=== PATIENT | female | born 1945 | race Caucasian/White ===

== ENCOUNTER 2017-01-07 08:13 | Emergency (ER) | payer OTHER ==
[~2017-01-07] VITALS: Ht 165.1 cm; Wt 106.6 kg
[~2017-01-07 08:13] MED LIST: ACET-1256; ASPEC81; CMD25; CMD5; CZR50; EZET10TA63; FRS/40; ISOS60TA25; METO1TAB69; NTRGSL/4; SIMV80TA2; SYN50; SYNTHROID
[2017-01-07 08:17] VITALS: TEMP 36.6; Ht 165.1 cm; Wt 106.6 kg
[2017-01-07 08:31] VITALS: O2SAT 96
[2017-01-07] MEDS ORDERED: OPTIRAY 320 IV PRN (08:45)
[2017-01-07 08:47] LABS: HEMATOCRIT 45.2 % (37-47); MEAN CELL VOLUME 91.1 fL (80-100); MEAN CORPUSCULAR HEMOGLOBIN 30.6 pg (25-34); MEAN CORPUSCULAR HGB CONC 33.6 g/dl (32-36); MEAN PLATELET VOLUME 9.2 fL (7.4-10.4); PLATELET COUNT 176 K/uL (130-400); RED BLOOD COUNT 4.96 M/uL (4.2-5.4); WHITE BLOOD COUNT 7.21 K/uL (4.8-10.8)
--- NOTE | 2017-01-07 08:58 | EMERGENCY ROOM VISIT NOTE ---
History Report prepared by Sharon: Tatyana Chandra Under the Supervision of: Dr. Sunil Hyde M.D. First contact with patient: 08:28 Chief Complaint: CARDIAC ASSESSMENT Stated Complaint: DEJA. ARM PAIN, PAIN GOING ACROSS BACK Nursing Triage Summary: pt report intermittent chest pain for 3 days. reports sob with exertion but is not new. has hx of clots in heart. denies any past stents or catheterization. pain radiates to bilat arms and across shoulders. spouse brought her here today d/t her c/o chest pain early this am History of Present Illness The patient is a 71 year old female who presents to the Emergency Room with complaints of constant bilateral arm pain beginning 3 days ago. The patient states that she has been having pain in both of her arms and across her back. She describes the pain as aching in her arms and the feeling of someone sitting on her shoulders. She reports that she has a cardiac history and a history of blood clots. The patient complains of back pain and intermittent shortness of breath that is not new. She denies any chest pain, abdominal pain, new leg swelling, and leg pain. She rates her pain as an 8/10 in severity. Source of History: patient Onset: 3 days go Position: arm (bilateral) Symptom Intensity: 8/10 Quality: ache Timing: constant Associated Symptoms: + SOB, + back pain, No chest pain, No abdominal pain Note: She denies any new leg swelling and leg pain. Review of Systems All systems have been listed, reviewed, and are negative other than those previously mentioned. Please see Additional Medical History Sheet. Past Medical & Surgical Medical Problems: (1) CAD (coronary artery disease) (2) Hx of blood clots (3) Hypertension Family History Heart disease Hypertension Social History Smoking Status: Never Smoker Smokeless Tobacco Use: No Alcohol Use: none Marital Status: Housing Status: lives with roommate Occupation Status: retired Current/Historical Medications Scheduled Furosemide (Lasix), 80 MG PO 3XWK Furosemide (Lasix), 40 MG PO 4XWK Isosorbide Mononitrate Ext Rel (Imdur Ext Rel), 60 MG PO QAM Levothyroxine Sodium (Synthroid), 75 MCG PO DAILY Losartan Potassium (Cozaar), 50 MG PO DAILY Metoprolol Tartrate (Lopressor) (Lopressor), 100 MG PO QAM Metoprolol Tartrate (Lopressor) (Lopressor), 150 MG PO QPM Ranitidine Hcl (Zantac), 150 MG PO BID Rosuvastatin Calcium (Crestor), 40 MG PO QPM Sulfa/Trimethoprim (Bactrim Ds 800MG/160MG), 1 TAB PO BID Warfarin Sod (Jantoven), 2.5 MG PO 3XWK Warfarin Sod (Coumadin), 5 MG PO 4XWK Scheduled PRN Nitroglycerin (Nitrostat), 0.4 MG UT PRN PRN for CHEST PAIN Allergies Coded Allergies: No Known Allergies (Verified Allergy, Unknown, 05/28/04) Physical Exam Vital Signs Date Time Temp Pulse Resp B/P (MAP) Pulse Ox O2 Delivery O2 Flow Rate FiO2 01/07/17 10:54 71 18 194/95 96 Room Air 01/07/17 09:05 68 18 161/84 95 Room Air 01/07/17 08:34 73 01/07/17 08:31 96 Room Air 01/07/17 08:28 98 Room Air 01/07/17 08:17 36.6 71 18 149/76 95 Room Air Physical Exam GENERAL: Patient awake, alert, oriented x 3. Patient follows commands. Patient does not appear toxic. Patient is adequately hydrated and well- nourished. SKIN: No erythema, pallor, cyanosis or rash HEENT: Normal head, hirsute, pupils equal, reactive to light and accommodation. Oral cavity and posterior pharynx appear normal. Neck: Without adenopathy, no neck vein distention. CARDIOVASCULAR: Pulses carotid radial and femoral are intact and equal bilaterally. LUNGS: Clear to auscultation. No wheezes, no rales, no rhonchi. HEART: No murmurs. No gallops. No rubs ABDOMEN: Obese, soft, nontender. EXTREMITIES: No signs of trauma. No calf or thigh tenderness. Patient has 2+ non pitting pretibial edema. NEUROLOGIC: Cranial nerves II-XII within normal limits. No gross motor sensory function deficits. Medical Decision & Procedures ER Provider Diagnostic Interpretation: Radiology results as stated below per my review and radiologist interpretation: TWO VIEW CHEST FINDINGS: PA and lateral chest radiographs are compared to study dated 01/20/2006. The heart is top normal in size. There is atherosclerotic calcification of the thoracic aorta. Chronic interstitial thickening is unchanged. The lungs and pleural spaces are clear. There is no pneumothorax. The skeletal structures are osteopenic. 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 IMPRESSION: No acute cardiopulmonary abnormality. Electronically signed by: Jay Armstrong M.D. 01/07/2017 9:05 AM Dictated Date/Time: 01/07/2017 9:[address] ANGIOGRAM OF THE CHEST COMBO FINDINGS: Thyroid: The thyroid gland is atrophic. Scattered subcentimeter low-attenuation nodules are identified. Thoracic aorta: No intramural hematoma is identified on the unenhanced series. There is mild atherosclerotic calcification of the thoracic aorta , which is normal in caliber and demonstrates bovine variant arch anatomy. No dissection is seen. The arch vessels are widely patent. Pulmonary vasculature: The pulmonary trunk is normal in caliber. There is no evidence of pulmonary embolus in the main, lobar, or segmental pulmonary arteries. Heart: The heart is normal in size and there is trace pericardial fluid. The coronary arteries are densely calcified. Lungs and pleural spaces: The lungs and pleural spaces are clear. The trachea and central airways are patent. Mediastinum: There is no mediastinal lymphadenopathy. Miracle: Clear. Axillae: There is no axillary lymphadenopathy. Upper abdomen: There is a small hiatal hernia. Circumferential wall thickening is suggested in the mid to distal esophagus. There is a punctate nonobstructing calculus in the upper pole of the left kidney. Skeletal structures: The skeletal structures are osteopenic. Degenerative change and DISH are noted in the thoracic spine. No lytic or blastic bony lesions are seen. Arthritic change is seen in the shoulders. IMPRESSION: 1. There is no aneurysm or dissection involving the thoracic aorta. 2. There is no evidence of pulmonary embolus in the main, lobar, or segmental pulmonary arteries. 3. There is a small hiatal hernia and significant circumferential wall thickening is suggested in the mid to distal esophagus. Correlate clinically for evidence of esophagitis. If further assessment is desired then endoscopy would be appropriate. 4. The lungs are clear. 5. Punctate nonobstructing left renal calculus. Electronically signed by: Jay Armstrong M.D. 01/07/2017 10:04 AM Dictated Date/Time: 01/07/2017 9:58 AM Laboratory Results 01/07/17 08:29 01/07/17 08:29 Test 6/24/17 08:29 01/07/17 09:30 01/07/17 10:48 Red Blood Count 4.96 M/uL (4.2-5.4) Mean Corpuscular Volume 91.1 fL (80-100) Mean Corpuscular Hemoglobin 30.6 pg (25-34) Mean Corpuscular Hemoglobin Concent 33.6 g/dl (32-36) RDW Standard Deviation 48.7 fL (36.4-46.3) RDW Coefficient of Variation 14.5 % (11.5-14.5) Mean Platelet Volume 9.2 fL (7.4-10.4) Anion Gap 9.0 mmol/L (3-11) Est Creatinine Clear Calc Drug Dose 40.5 ml/min Estimated GFR () 39.6 Estimated GFR (Non- 34.2 BUN/Creatinine Ratio 13.4 (10-20) Calcium Level 9.6 mg/dl (8.5-10.1) Troponin I < 0.015 ng/ml (0-0.045) Chemistry Specimen Hemolysis Urine Color YELLOW Urine Appearance CLOUDY (CLEAR) Urine pH 8.0 (4.5-7.5) Urine Specific Geary 1.026 (1.000-1.030) Urine Protein NEG (NEG) Urine Glucose (UA) NEG (NEG) Urine Ketones NEG (NEG) Urine Occult Blood TRACE (NEG) Urine Nitrite NEG (NEG) Urine Bilirubin NEG (NEG) Urine Urobilinogen NEG (NEG) Urine Leukocyte Esterase SMALL (NEG) Urine WBC (Auto) 10-30 /hpf (0-5) Urine RBC (Auto) 5-10 /hpf (0-4) Urine Hyaline Casts (Auto) 1-5 /lpf (0-5) Urine Epithelial Cells (Auto) >30 /lpf (0-5) Urine Bacteria (Auto) 2+ (NEG) Urine Renal Epithelial Cells /lpf (0-5) Prothrombin Time 16.9 SECONDS (9.0-12.0) Prothromb Time International Ratio 1.6 (0.9-1.1) Laboratory results as stated above per my review. ECG Indication: back/shoulder pain Rate (beats per minute): 74 Rhythm: sinus rhythm Findings: 1st degree AV block, LAFB, no acute ischemic change, other (left ventricular hypertrophy) Comparison ECG Date: 07-FEB-2006 Change: Minimal change from previous EKG from 11 years ago. ED Course 0828: Past medical records reviewed. The patient was evaluated in room B10. A complete history and physical examination was performed. 1029: I reevaluated and updated the patient. 1042: Upon reevaluation, the patient appeared to have improvement of her symptoms. I discussed today's findings with the patient. She verbalized agreement of the treatment plan. The patient was discharged home. Medical Decision I considered multiple diagnoses including myocardial infarction, chest wall pain , pericarditis, myocarditis, aortic emergencies, pulmonary embolism, congestive heart failure, GI causes, and other significant cardiopulmonary disorders. Multiple labs, urinalysis and imaging were obtained. Please see above. The patient has numerous white cells and bacteria in the urine consistent with a UTI despite the fact that she has no urinary symptoms. CT reveals no aortic pathology but does show what appears to be some esophagitis and small hiatal hernia. I believe that is the source of her pain. The patient has no evidence of an acute cardiopulmonary event. The patient will be started on ranitidine and Bactrim. She is to follow-up with her family physician within the next 7- 10 days. INR is slightly low but she has had high numbers in the recent past therefore I will keep her on the same dose at this time. Blood pressure is also elevated. She will need to follow-up with her family physician. Medication Reconciliation: I attest that I have personally reviewed the patient' s current medication list. Blood Pressure Screening: Patient was found to have an elevated blood pressure and was referred to their primary doctor for recheck and further treatment. Impression Primary Impression: Esophagitis Additional Impression: Urinary tract infection Scribe Attestation The scribe's documentation has been prepared under my direction and personally reviewed by me in its entirety. I confirm that the note above accurately reflects all work, treatment, procedures, and medical decision making performed by me. Departure Information Dispostion Home / Self-Care Prescriptions Sulfa/Trimethoprim (Bactrim Ds 800MG/160MG) Tab 1 TAB PO BID for 5 Days, #10 TAB Prov: Sunil Hyde M.D. 01/07/17 Ranitidine Hcl (ZANTAC) 150 Mg Tab 150 MG PO BID for 30 Days, #60 TAB Prov: Sunil Hyde M.D. 01/07/17 Referrals José Miguel Choudhary M.D. (MEDICAL) (PCP) Forms IMPORTANT VISIT INFORMATION Patient Instructions My [facility] Additional Instructions 1 ranitidine/Zantac twice a day for 30 days One Bactrim twice a day for 5 days. Follow-up with your family physician within the next 10 days. Return here sooner if pain is getting worse. Follow up with your family doctor within 10 days for back pain and blood pressure evaluation. Problem Qualifiers
--- NOTE | 2017-01-07 09:06 | DIAGNOSTIC IMAGING REPORT ---
TWO VIEW CHEST CLINICAL HISTORY: Atypical chest pain. FINDINGS: PA and lateral chest radiographs are compared to study dated 01/20/2006. The heart is top normal in size. There is atherosclerotic calcification of the thoracic aorta. Chronic interstitial thickening is unchanged. The lungs and pleural spaces are clear. There is no pneumothorax. The skeletal structures are osteopenic. 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 IMPRESSION: No acute cardiopulmonary abnormality. Electronically signed by: Jay Armstrong M.D. 01/07/2017 9:05 AM Dictated Date/Time: 01/07/2017 9:04 AM
[2017-01-07 09:17] LABS: BLOOD UREA NITROGEN 20 mg/dl (7-18); BUN/CREATININE RATIO 13.4 (10-20); CALCIUM 9.6 mg/dl (8.5-10.1); CARBON DIOXIDE 27 mmol/L (21-32); CHLORIDE 105 mmol/L (98-107); GLUCOSE 124 mg/dl (70-99); POTASSIUM 4.1 mmol/L (3.5-5.1); SODIUM 141 mmol/L (136-145)
[2017-01-07] MEDS ORDERED: NITR0.4S UT (09:39)
[2017-01-07] MEDS ORDERED: METO100T14 PO ×2 (09:39)
[2017-01-07] MEDS ORDERED: ROSU40TA PO (09:39)
[2017-01-07] MEDS ORDERED: LEVO75TA PO (09:39)
[2017-01-07] MEDS ORDERED: LOSA50TA6 PO (09:39)
[2017-01-07] MEDS ORDERED: ASPI81TA28 PO (09:39)
[2017-01-07 09:42] LABS: URINE APPEARANCE CLOUDY (CLEAR); URINE BILIRUBIN NEG (NEG); URINE COLOR YELLOW; URINE EPITHELIAL CELL AUTO >30 /lpf (0-5); URINE NITRITE NEG (NEG); URINE SPECIFIC GRAVITY 1.026 (1.000-1.030); UROBILINOGEN NEG (NEG)
[2017-01-07 09:47] LABS: MANUAL MICROSCOPIC REQUIRED? NO; REVIEW REQ? YES
[2017-01-07 09:59] LABS: SULFASALICYLIC ACID NEG (NEG)
--- NOTE | 2017-01-07 10:06 | DIAGNOSTIC IMAGING REPORT ---
CT ANGIOGRAM OF THE CHEST COMBO CLINICAL HISTORY: Atypical chest pain. Dyspnea. Shoulder and back pain. COMPARISON STUDY: Chest radiographs dated 01/07/2017. TECHNIQUE: Before and following the IV administration of 120 cc of Optiray 320, CT angiogram of the chest was performed from the thoracic inlet to the upper abdomen utilizing the dissection protocol. Images are reviewed in the axial, sagittal, and coronal planes. 3-D MIPS images are created and assessed. IV contrast was administered without complication. CT DOSE: 1167.72 mGy.cm FINDINGS: Thyroid: The thyroid gland is atrophic. Scattered subcentimeter low-attenuation nodules are identified. Thoracic aorta: No intramural hematoma is identified on the unenhanced series. There is mild atherosclerotic calcification of the thoracic aorta , which is normal in caliber and demonstrates bovine variant arch anatomy. No dissection is seen. The arch vessels are widely patent. Pulmonary vasculature: The pulmonary trunk is normal in caliber. There is no evidence of pulmonary embolus in the main, lobar, or segmental pulmonary arteries. Heart: The heart is normal in size and there is trace pericardial fluid. The coronary arteries are densely calcified. Lungs and pleural spaces: The lungs and pleural spaces are clear. The trachea and central airways are patent. Mediastinum: There is no mediastinal lymphadenopathy. Miracle: Clear. Axillae: There is no axillary lymphadenopathy. Upper abdomen: There is a small hiatal hernia. Circumferential wall thickening is suggested in the mid to distal esophagus. There is a punctate nonobstructing calculus in the upper pole of the left kidney. Skeletal structures: The skeletal structures are osteopenic. Degenerative change and DISH are noted in the thoracic spine. No lytic or blastic bony lesions are seen. Arthritic change is seen in the shoulders. IMPRESSION: 1. There is no aneurysm or dissection involving the thoracic aorta. 2. There is no evidence of pulmonary embolus in the main, lobar, or segmental pulmonary arteries. 3. There is a small hiatal hernia and significant circumferential wall thickening is suggested in the mid to distal esophagus. Correlate clinically for evidence of esophagitis. If further assessment is desired then endoscopy would be appropriate. 4. The lungs are clear. 5. Punctate nonobstructing left renal calculus. Electronically signed by: Jay Armstrong M.D. 01/07/2017 10:04 AM Dictated Date/Time: 01/07/2017 9:58 AM
[2017-01-07] MEDS ORDERED: CMD/25 PO (10:24)
[2017-01-07] MEDS ORDERED: WARF2.5T8 PO (10:24)
[2017-01-07] MEDS ORDERED: FRS/40 PO ×2 (10:30)
[2017-01-07] MEDS ORDERED: ISOS60TA25 PO (10:31)
[2017-01-07] MEDS ORDERED: SULF800T23 PO (10:35)
[2017-01-07] MEDS ORDERED: RANI150T3 PO (10:35)
[2017-01-07 10:54] VITALS: BP 194/95; PULSE 71; O2SAT 96
[2017-01-07 10:59] LABS: INR 1.6 (0.9-1.1); PROTHROMBIN TIME (PATIENT) 16.9 SECONDS (9.0-12.0)
== END 2017-01-07 11:23 | disposition home or self-care (01) ==
LOC: C.EDB 08:15
DX: K20.9 Esophagitis, unspecified (principal); N39.0 Urinary tract infection, site not specified; I25.10 Atherosclerotic heart disease of native coronary artery without angina pectoris; I10 Essential (primary) hypertension; Z86.718 Personal history of other venous thrombosis and embolism; Z79.01 Long term (current) use of anticoagulants; Z79.899 Other long term (current) drug therapy

== ENCOUNTER 2017-04-18 15:21 | Emergency (ER) | payer OTHER ==
[~2017-04-18] VITALS: Ht 162.6 cm; Wt 104.2 kg
[~2017-04-18 15:21] MED LIST changes: -ACET-1256; -ASPEC81; +CMD/25 PO; -CMD25; -CMD5; -CZR50; -EZET10TA63; -FRS/40; +FRS/40 PO; -ISOS60TA25; +ISOS60TA25 PO; +LEVO75TA PO; +LOSA50TA6 PO; +METO100T14 PO; -METO1TAB69; +NITR0.4S UT; -NTRGSL/4; +ROSU40TA PO; -SIMV80TA2; -SYN50; -SYNTHROID; +WARF2.5T8 PO
[2017-04-18 15:30] VITALS: TEMP 37; Ht 162.6 cm; Wt 104.2 kg
[2017-04-18] MEDS ORDERED: SODIUM CHLORIDE 0.9% 1000ML 1,000 ML IV STA (16:02)
--- NOTE | 2017-04-18 16:41 | DIAGNOSTIC IMAGING REPORT ---
CHEST ONE VIEW PORTABLE CLINICAL HISTORY: Altered mental status. Weakness. COMPARISON STUDY: Chest radiograph and chest CT January 07, 2017. FINDINGS: Lung volumes are normal. No pneumothorax or pleural effusion is present. There is no evidence of pulmonary edema. No consolidation is identified. There is mild to moderate enlargement of the cardiac silhouette. IMPRESSION: 1. No acute cardiopulmonary findings. 2. Mild to moderate enlargement of the cardiac silhouette. Electronically signed by: Yaakov Levi M.D. 04/18/2017 4:40 PM Dictated Date/Time: 04/18/2017 4:38 PM
[2017-04-18 17:12] LABS: URINE APPEARANCE CLOUDY (CLEAR); URINE BILIRUBIN NEG (NEG); URINE COLOR DK YELLOW; URINE EPITHELIAL CELL AUTO >30 /lpf (0-5); URINE NITRITE NEG (NEG); URINE SPECIFIC GRAVITY 1.021 (1.000-1.030); UROBILINOGEN NEG (NEG); ZZUR CULT IF INDIC CLEAN CATCH YES
[2017-04-18 17:15] LABS: MANUAL MICROSCOPIC REQUIRED? NO; REVIEW REQ? NO
[2017-04-18 17:15] LABS: BASO % 0.4 %; BASO ABS # 0.02 K/uL (0-0.2); COMPLETE YES; EOS % 1.1 %; HEMATOCRIT 36.3 % (37-47); IG% 0.2 %; LYMPH % 19.9 %; LYMPH ABS # 1.13 K/uL (1.2-3.4); MEAN CELL VOLUME 91.9 fL (80-100); MEAN CORPUSCULAR HEMOGLOBIN 29.1 pg (25-34); MEAN CORPUSCULAR HGB CONC 31.7 g/dl (32-36); MEAN PLATELET VOLUME 9.2 fL (7.4-10.4); MONO % 8.3 %; NEUT % 70.1 %; PLATELET COUNT 185 K/uL (130-400); RED BLOOD COUNT 3.95 M/uL (4.2-5.4); WHITE BLOOD COUNT 5.68 K/uL (4.8-10.8)
[2017-04-18 17:22] LABS: ALT/SGPT 9 U/L (12-78); AST/SGOT 10 U/L (15-37); BLOOD UREA NITROGEN 19 mg/dl (7-18); BUN/CREATININE RATIO 13.8 (10-20); CALCIUM 8.9 mg/dl (8.5-10.1); CARBON DIOXIDE 29 mmol/L (21-32); CHLORIDE 111 mmol/L (98-107); GLUCOSE 97 mg/dl (70-99); MAGNESIUM 2.5 mg/dl (1.8-2.4); POTASSIUM 3.9 mmol/L (3.5-5.1); SODIUM 146 mmol/L (136-145)
[2017-04-18 17:23] LABS: INR 3.9 (0.9-1.1); PARTIAL THROMBOPLASTIN RATIO 1.6; PROTHROMBIN TIME (PATIENT) 43.7 SECONDS (9.0-12.0)
[2017-04-18 17:25] LABS: ALKALINE PHOSPHATASE 90 U/L (45-117)
--- NOTE | 2017-04-18 18:34 | EMERGENCY ROOM VISIT NOTE ---
History Report prepared by Mukundibjj: Nael Cifuentes Under the Supervision of: Dr. Irwin Bajwa D.O. First contact with patient: 15:36 Chief Complaint: BILATERAL LEG WEAKNESS Stated Complaint: LEG WEAKNESS & SWELLING History of Present Illness The patient is a 72 year old female who presents to the Emergency Room with complaints of constant bilateral leg weakness beginning shortly prior to arrival. The patient states that she was walking up a flight of stairs when her legs suddenly became weak and gave out. She states that she collapsed on the stairs, but did not hit her head or lose consciousness. She does not believe she injured herself during the fall. The patient notes that she had a similar event occur about a month ago, and believes they may be related to a new medication she was started on. She also complains of bilateral leg swelling recently. She denies any nausea, vomiting, chest pain, SOB, or dizziness. The patient is on Warfarin. She uses a cane to ambulate at home. Onset: shortly prior to arrival Position: leg (bilateral) Quality: other (weakness) Timing: constant Associated Symptoms: No LOC, No chest pain, No SOB, No nausea, No vomiting Note: Additional symptoms: bilateral leg swelling. She denies any dizziness. Review of Systems See HPI for pertinent positives & negatives. A total of 10 systems reviewed and were otherwise negative. Past Medical & Surgical Medical Problems: (1) CAD (coronary artery disease) (2) Hx of blood clots (3) Hypertension Family History Heart disease Hypertension Social History Smoking Status: Never Smoker Alcohol Use: none Marital Status: Housing Status: lives with roommate Occupation Status: retired Current/Historical Medications Scheduled Furosemide (Lasix), 80 MG PO 3XWK Furosemide (Lasix), 40 MG PO 4XWK Isosorbide Mononitrate Ext Rel (Imdur Ext Rel), 60 MG PO QAM Levothyroxine Sodium (Synthroid), 75 MCG PO DAILY Losartan Potassium (Cozaar), 50 MG PO DAILY Metoprolol Tartrate (Lopressor) (Lopressor), 100 MG PO QAM Metoprolol Tartrate (Lopressor) (Lopressor), 150 MG PO QPM Rosuvastatin Calcium (Crestor), 40 MG PO QPM Warfarin Sod (Jantoven), 2.5 MG PO 5XWK Warfarin Sod (Coumadin), 5 MG PO 2XWK Scheduled PRN Nitroglycerin (Nitrostat), 0.4 MG UT PRN PRN for CHEST PAIN Allergies Coded Allergies: No Known Allergies (Verified , 04/18/17) Physical Exam Vital Signs Date Time Temp Pulse Resp B/P (MAP) Pulse Ox O2 Delivery O2 Flow Rate FiO2 04/18/17 17:01 65 16 101/57 98 Room Air 04/18/17 16:07 66 04/18/17 15:30 37.0 67 18 146/73 100 Room Air Physical Exam CONSTITUTIONAL/VITAL SIGNS: Reviewed / noted above. GENERAL: Non-toxic in appearance. INTEGUMENTARY: Warm, dry, and [place]. HEAD: Normocephalic. EYES: without scleral icterus or trauma. ENT/OROPHARYNX: clear and moist. LYMPHADENOPATHY/NECK: Is supple without lymphadenopathy or meningismus. RESPIRATORY: Lungs clear and equal. CARDIOVASCULAR: Regular rate and rhythm. GI/ABDOMEN: Soft and nontender. No organomegaly or pulsatile mass. No rebound or guarding. Normal bowel sounds. EXTREMITIES: Warm and well perfused. Chronic lower extremity edema. BACK: No CVA tenderness. NEUROLOGICAL: Intact without focal deficits. PSYCHIATRIC: normal affect. MUSCULOSKELETAL: Normally developed with good muscle tone. Medical Decision & Procedures ER Provider Diagnostic Interpretation: X ray results and stated below per my interpretation and radiology interpretation. CHEST ONE VIEW PORTABLE FINDINGS: Lung volumes are normal. No pneumothorax or pleural effusion is present. There is no evidence of pulmonary edema. No consolidation is identified. There is mild to moderate enlargement of the cardiac silhouette. IMPRESSION: 1. No acute cardiopulmonary findings. 2. Mild to moderate enlargement of the cardiac silhouette. Electronically signed by: Yakaov Levi M.D. 04/18/2017 4:40 PM Laboratory Results 04/18/17 15:45 Red Blood Count 3.95, Mean Corpuscular Volume 91.9, Mean Corpuscular Hemoglobin 29.1, Mean Corpuscular Hemoglobin Concent 31.7, Mean Platelet Volume 9.2, Neutrophils (%) (Auto) 70.1, Lymphocytes (%) (Auto) 19.9, Monocytes (%) (Auto) 8.3, Eosinophils (%) (Auto) 1.1, Basophils (%) (Auto) 0.4, Neutrophils # (Auto) 3.99, Lymphocytes # (Auto) 1.13, Monocytes # (Auto) 0.47, Eosinophils # (Auto) 0.06, Basophils # (Auto) 0.02 04/18/17 15:45 Test 04/18/17 00:00 04/18/17 15:45 Urine Color DK YELLOW Urine Appearance CLOUDY (CLEAR) Urine pH 5.0 (4.5-7.5) Urine Specific [place] 1.021 (1.000-1.030) Urine Protein 1+ (NEG) Urine Glucose (UA) NEG (NEG) Urine Ketones TRACE (NEG) Urine Occult Blood NEG (NEG) Urine Nitrite NEG (NEG) Urine Bilirubin NEG (NEG) Urine Urobilinogen NEG (NEG) Urine Leukocyte Esterase NEG (NEG) Urine WBC (Auto) 1-5 /hpf (0-5) Urine RBC (Auto) 0-4 /hpf (0-4) Urine Hyaline Casts (Auto) 5-10 /lpf (0-5) Urine Epithelial Cells (Auto) >30 /lpf (0-5) Urine Bacteria (Auto) 1+ (NEG) White Blood Count 5.68 K/uL (4.8-10.8) Red Blood Count 3.95 M/uL (4.2-5.4) Hemoglobin 11.5 g/dL (12.0-16.0) Hematocrit 36.3 % (37-47) Mean Corpuscular Volume 91.9 fL (80-100) Mean Corpuscular Hemoglobin 29.1 pg (25-34) Mean Corpuscular Hemoglobin Concent 31.7 g/dl (32-36) Platelet Count 185 K/uL (130-400) Mean Platelet Volume 9.2 fL (7.4-10.4) Neutrophils (%) (Auto) 70.1 % Lymphocytes (%) (Auto) 19.9 % Monocytes (%) (Auto) 8.3 % Eosinophils (%) (Auto) 1.1 % Basophils (%) (Auto) 0.4 % Neutrophils # (Auto) 3.99 K/uL (1.4-6.5) Lymphocytes # (Auto) 1.13 K/uL (1.2-3.4) Monocytes # (Auto) 0.47 K/uL (0.11-0.59) Eosinophils # (Auto) 0.06 K/uL (0-0.5) Basophils # (Auto) 0.02 K/uL (0-0.2) RDW Standard Deviation 50.8 fL (36.4-46.3) RDW Coefficient of Variation 14.9 % (11.5-14.5) Immature Granulocyte % (Auto) 0.2 % Immature Granulocyte # (Auto) 0.01 K/uL (0.00-0.02) Prothrombin Time 43.7 SECONDS (9.0-12.0) Prothromb Time International Ratio 3.9 (0.9-1.1) Activated Partial Thromboplast Time 41.0 SECONDS (21.0-31.0) Partial Thromboplastin Ratio 1.6 Anion Gap 6.0 mmol/L (3-11) Est Creatinine Clear Calc Drug Dose 41.5 ml/min Estimated GFR () 42.8 Estimated GFR (Non- 36.9 BUN/Creatinine Ratio 13.8 (10-20) Calcium Level 8.9 mg/dl (8.5-10.1) Magnesium Level 2.5 mg/dl (1.8-2.4) Total Bilirubin 1.4 mg/dl (0.2-1) Direct Bilirubin 0.2 mg/dl (0-0.2) Aspartate Amino Transf (AST/SGOT) 10 U/L (15-37) Alanine Aminotransferase (ALT/SGPT) 9 U/L (12-78) Alkaline Phosphatase 90 U/L (45-117) Total Creatine Kinase 31 U/L (26-192) Creatine Kinase MB < 0.5 ng/ml (0.5-3.6) Creatine Kinase MB Ratio (0-3.0) Troponin I < 0.015 ng/ml (0-0.045) Total Protein 6.5 gm/dl (6.4-8.2) Albumin 2.9 gm/dl (3.4-5.0) Lipase 180 U/L (73-393) Laboratory results as stated above per my review. Medications Administered Medications (Trade) Dose Ordered Sig/David Route Start Time Stop Time Status Last Admin Dose Admin Sodium Chloride 1,000 ml @ 200 mls/hr Q5H STAT IV 04/18/17 16:02 04/18/17 21:01 04/18/17 16:02 200 MLS/HR ECG Indication: weakness Rate (beats per minute): 65 Rhythm: sinus rhythm Findings: 1st degree AV block, no acute ischemic change, no ectopy ED Course 1555: Previous medical records were reviewed. The patient was evaluated in room B4A. A complete history and physical examination was performed. 1602: Ordered Sodium Chloride 1000 ml @ 2000 mls/hr IV. 1840: On reevaluation, the patient is resting comfortably. I discussed the results and findings with the patient. She verbalized agreement of the treatment plan. She was discharged home. Medical Decision Differential includes acute coronary syndrome, myocardial infarction, CVA, TIA, anemia, infection, pneumonia, UTI, pyelonephritis, poor nutrition, dehydration, electrolyte disturbance, hypoglycemia. This is a 72-year-old female who presents to the ED with a chief complaint of her legs giving out when going up the steps today. She states that she normally walks with a cane. Today as she was going up the steps, she just reports that her legs folded under her. She denies any specific injury. She denies falling down the steps or striking her head. She came in here for evaluation. She was transported by EMS. The patient is on warfarin chronically and she is also on chronic Lasix for lower extremity edema. Her exam was relatively unremarkable. There is no focal weakness. She is able to lift both of her legs off the bed. She does have bilateral lower extremity edema. Exam is otherwise unremarkable. She is in no distress. Vital signs are stable. Patient's twelve-lead EKG reveals sinus rhythm with first-degree AV block. CBC is unremarkable. INR is 3.9. She is on Coumadin. Troponin is negative. Urine does not show infection. Chest x-ray was negative for acute disease. The patient was told results the test. She was felt to be stable for discharge and outpatient follow-up. Medication Reconcilliation Current Medication List: was personally reviewed by me Blood Pressure Screening Patient's blood pressure: Elevated blood pressure Blood pressure disposition: Elevated BP felt to be situational Impression Primary Impression: Fall Scribe Attestation The scribe's documentation has been prepared under my direction and personally reviewed by me in its entirety. I confirm that the note above accurately reflects all work, treatment, procedures, and medical decision making performed by me. Departure Information Dispostion Home / Self-Care Referrals José Miguel Choudhary M.D. (MEDICAL) (PCP) Patient Instructions My [facility] Additional Instructions Follow-up with your doctor for further care and evaluation in 1-2 days. Return to the emergency department for worsening or new symptoms or any concerns. You have been examined and treated today on an emergency basis only. This is not a substitute for, or an effort to provide, complete comprehensive medical care. It is impossible to recognize and treat all injuries or illnesses in a single emergency department visit. It is therefore important that you follow up closely with your doctor. Call as soon as possible for an appointment.
[2017-04-18 18:43] VITALS: BP 149/73; PULSE 65; O2SAT 98
== END 2017-04-18 19:10 | disposition home or self-care (01) ==
LOC: EDBD 15:21 → C.EDB 15:24
DX: R60.0 Localized edema (principal); W19.XXXA Unspecified fall, initial encounter; I44.0 Atrioventricular block, first degree; I10 Essential (primary) hypertension; I25.10 Atherosclerotic heart disease of native coronary artery without angina pectoris; Z86.2 Personal history of diseases of the blood and blood-forming organs and certain disorders involving the immune mechanism; Z79.01 Long term (current) use of anticoagulants; Z79.899 Other long term (current) drug therapy; Z82.49 Family history of ischemic heart disease and other diseases of the circulatory system

== ENCOUNTER 2025-03-27 23:19 | Inpatient (IN) ==
--- NOTE | 2025-03-28 00:21 | Emergency Department Note ---
Impression & Plan Bilateral cellulitis of lower leg, Elevated troponin, Weakness Admit to the [facility] ED Provider Note NAME: SUN SELLERS AGE: 80 SEX: Female INFORMANT: Patient ED PROVIDER(S): Daysi Roman DO CHIEF COMPLAINT: weakness; lower extremity swelling and drainage PLAN: Disposition: admit to the [facility] MEDICAL DECISION MAKING: This is an 80-year-old female patient who presents to the emergency department by EMS for increasing weakness over the past couple of days and redness, swelling and drainage from both lower extremities. Patient was unable to get out of recliner and called EMS. Vital signs were stable on presentation but on physical exam she has obvious significant bilateral lower extremity edema with cellulitis and drainage from both legs. EMS providers explained that the patient's home is in deplorable condition with insects and snakes noted about the house. Chest x-ray showed evidence of cardiomegaly but no other evidence of CHF. Urinalysis was unremarkable. A septic protocol was performed and revealed a normal white blood cell count, negative lactate and negative procalcitonin. H&H were stable for the patient. Creatinine was at baseline at 1.95. Troponin was elevated at 27.6. The case was discussed with the [facility] and they will evaluate for further inpatient care and Antibiotic choice. Care/management discussed with: consulting technical manager and [facility] Triage Nursing notes: reviewed and agree with them. Vital Signs: reviewed and remarkable for hypertension Additional History obtained from: EMS Chronic Medical/Social Conditions affecting care: According to EMS, the patient is currently living by herself in a home that appears to be deplorable. There are snakes and bugs all throughout the home. Differential Diagnosis: CHF, lower extremity cellulitis, sepsis, hypoglycemia, hyperglycemia, cardiac dysrhythmia Diagnostics, independently interpreted by me: ECG: accelerated junctional rhythm at a rate of 71. There is no ST segment elevation but there is some ST segment depression in leads I and aVL. Cardiac Monitoring: Accelerated junctional at 72 Imaging studies: Portable chest x-ray: Cardiomegaly but no significant signs of CHF or pulmonary vascular congestion as per my independent interpretation. HPI: 80 year old Female arrives for evaluation of Weakness. patient called EMS today because she was unable to get up from her recliner. She has had increasing weakness over the past couple of days and redness, swelling and drainage from both lower extremities. PAST MEDICAL HISTORY: see below, PAST SURGICAL HISTORY: See Below, SOCIAL HISTORY: Patient lives by herself, home is thought to be deplorable HOME MEDICATIONS: See list ALLERGIES: None VITALS: See Below PHYSICAL EXAMINATION: HEENT: Head - normocephalic and atraumatic. Pupils are equal, round, and reactive to light. Extraocular eye muscles are intact, and sclera are anicteric. Nose - moist nasal mucosa without discharge. Mouth - moist buccal mucosa. Poor dentition. Oropharynx is nonerythematous and there is no tonsillar exudate or edema noted. Neck: Supple; no JVD, nuchal rigidity, cervical lymphadenopathy. Heart: Regular rate and rhythm. There is a normal S1 and S2 with no murmurs, clicks, or gallops appreciated. Lungs: Clear to auscultation bilaterally with no wheezes, rales, or rhonchi. Abdomen: Soft, completely nontender, nondistended, with good bowel sounds. There are no palpable pulsatile masses or hepatosplenomegaly. There is no guarding, rigidity, or rebound noted. Extremities: Patient has significant erythema and edema to both lower extremities below the knees. There are open/seeping wounds on the calves. Patient has ulceration forming on the left heel. Skin: warm and dry with good turgor and no rashes. Emergency Department course: The patient was evaluated in room C-4. A complete history and physical was performed. A septic protocol was obtained. Portable chest x-ray was performed. I reviewed findings with the patient. I discussed the case with the [facility] Hospitalist and they will evaluate for further inpatient care and antibiotic therapy. Past Med/Surg History Problem List (Updated 03/28/25 @ 18:58 by Daysi Roman DO) Weakness (Acute) Elevated troponin (Acute) Bilateral cellulitis of lower leg (Acute) Chronic stable angina Demand ischemia of myocardium Morbid obesity Prediabetes Chronic renal failure (CRF), stage 3b Lymphedema associated with obesity Acute on chronic heart failure with mildly reduced ejection fraction (HFmrEF) CHF (congestive heart failure) Nephrolithiasis Gross hematuria Hypertension (Chronic) CAD (coronary artery disease) (Chronic) Social History Smoking Status: Never smoker Hx Alcohol Use: No Hx Substance Use: No Preferred Language: Monegasque Communication Ability: Effective Ict Support Technicians Required: No Beliefs That Will Affect Care: None Current Living Situation: Alone Feels Safe at Home: Yes Safety Concerns: Feels Safe At This Time Assistive Devices: Cane and Walker Allergies Allergies Allergy/AdvReac Type Severity Reaction Status Date / Time No Known Allergies Allergy Unknown Verified 03/28/25 00:32 Home Meds Home Medications Medication Instructions Recorded Confirmed diclofenac sodium 1 % topical gel 2 g topical BID PRN JOINT PAIN 03/28/25 03/28/25 ergocalciferol (vitamin D2) 1,250 1,250 mcg PO WK 03/28/25 03/28/25 mcg (50,000 unit) capsule (Vitamin D2) ferrous sulfate 325 mg (65 mg 325 mg PO BID 03/28/25 03/28/25 iron) tablet (FeroSul) gabapentin 100 mg capsule 100 mg PO TID 03/28/25 03/28/25 isosorbide mononitrate 60 mg 60 mg PO QAM 03/28/25 03/28/25 tablet,extended release 24 hr levothyroxine 75 mcg tablet 75 mcg PO DAILYBB 03/28/25 03/28/25 losartan 50 mg tablet 50 mg PO DAILY 03/28/25 03/28/25 metoprolol tartrate 100 mg tablet 100 mg PO DAILY 03/28/25 03/28/25 nitroglycerin 0.4 mg sublingual 0.4 mg sublingual DIRECTED PRN 03/28/25 03/28/25 tablet (Nitrostat) Chest Pain pantoprazole 20 mg tablet,delayed 20 mg PO DAILY 03/28/25 03/28/25 release rosuvastatin 10 mg tablet 10 mg PO HS 03/28/25 03/28/25 tramadol 50 mg tablet 50 mg PO Q6H PRN Pain, Moderate 03/28/25 03/28/25 Results & Data (ED) Vital Signs Vital Signs - 24 hr 03/27/25 23:20 03/27/25 23:36 03/27/25 23:48 Temperature 36.5 C Temperature Source Oral Pulse Rate 71 71 Pulse Rate [Apical] 71 Pulse Rate from SpO2 Sensor Pulse Rhythm Pulse Rhythm [Apical] Regular Respiratory Rate 16 16 21 Respiratory Effort / Characteristics Non-Labored Spontaneous Non-Labored Spontaneous Respiratory Depth Normal Normal Respiratory Pattern Regular Regular Blood Pressure 145/81 H Blood Pressure [Right Arm] 145/81 H Blood Pressure Mean 102 Blood Pressure Mean [Right Arm] 102 Pulse Oximetry 100 100 100 Oxygen Delivery Method Room Air Room Air Room Air Sepsis Recent Fever Within 48 Hours No Sepsis New/Unexplained Change in Mental Status No Sepsis Action Taken by Nursing No Action Required 03/28/25 00:00 03/28/25 00:09 03/28/25 00:15 Temperature Temperature Source Pulse Rate 69 71 72 Pulse Rate [Apical] Pulse Rate from SpO2 Sensor Pulse Rhythm Regular Pulse Rhythm [Apical] Respiratory Rate 15 17 Respiratory Effort / Characteristics Respiratory Depth Respiratory Pattern Blood Pressure 135/60 Blood Pressure [Right Arm] Blood Pressure Mean 85 Blood Pressure Mean [Right Arm] Pulse Oximetry 98 98 Oxygen Delivery Method Room Air Room Air Sepsis Recent Fever Within 48 Hours Sepsis New/Unexplained Change in Mental Status Sepsis Action Taken by Nursing 03/28/25 00:15 03/28/25 00:15 03/28/25 00:30 Temperature Temperature Source Pulse Rate 71 75 Pulse Rate [Apical] 72 Pulse Rate from SpO2 Sensor 71 Pulse Rhythm Pulse Rhythm [Apical] Regular Respiratory Rate 17 19 15 Respiratory Effort / Characteristics Non-Labored Spontaneous Respiratory Depth Normal Respiratory Pattern Regular Blood Pressure 154/71 H Blood Pressure [Right Arm] 135/60 Blood Pressure Mean 103 Blood Pressure Mean [Right Arm] 85 Pulse Oximetry 98 97 96 Oxygen Delivery Method Room Air Room Air Room Air Sepsis Recent Fever Within 48 Hours Sepsis New/Unexplained Change in Mental Status Sepsis Action Taken by Nursing 03/28/25 01:00 03/28/25 01:31 03/28/25 02:01 Temperature Temperature Source Pulse Rate 71 72 Pulse Rate [Apical] 73 Pulse Rate from SpO2 Sensor 71 71 Pulse Rhythm Pulse Rhythm [Apical] Regular Respiratory Rate 17 14 18 Respiratory Effort / Characteristics Non-Labored Spontaneous Respiratory Depth Normal Respiratory Pattern Regular Blood Pressure 136/61 140/75 Blood Pressure [Right Arm] Blood Pressure Mean 84 106 Blood Pressure Mean [Right Arm] Pulse Oximetry 99 99 96 Oxygen Delivery Method Room Air Room Air Room Air Sepsis Recent Fever Within 48 Hours Sepsis New/Unexplained Change in Mental Status Sepsis Action Taken by Nursing 03/28/25 02:30 Temperature Temperature Source Pulse Rate 79 Pulse Rate [Apical] Pulse Rate from SpO2 Sensor 79 Pulse Rhythm Pulse Rhythm [Apical] Respiratory Rate 20 Respiratory Effort / Characteristics Respiratory Depth Respiratory Pattern Blood Pressure 156/79 H Blood Pressure [Right Arm] Blood Pressure Mean 119 Blood Pressure Mean [Right Arm] Pulse Oximetry 97 Oxygen Delivery Method Room Air Sepsis Recent Fever Within 48 Hours Sepsis New/Unexplained Change in Mental Status Sepsis Action Taken by Nursing Laboratory Data 03/28/25 07:00 03/28/25 07:00 Lab Results 03/27/25 03/28/25 03/28/25 Range/Units 23:40 00:59 01:05 WBC 6.05 (4.8-10.8) K/ul RBC 3.68 L (4.20-5.40) M/uL Hgb 11.4 L (12.0-16.0) g/dl Hct 34.6 L (37.0-47.0) % MCV 94.0 (80.0-100.0) fL MCH 31.0 (25.0-34.0) pg MCHC 32.9 (32.0-36.0) g/dL RDW Std Deviation 49.5 H (36.4-46.3) fL RDW Coeff of Hailey 14.4 (11.5-14.5) % Plt Count 175 (130-400) K/uL MPV 9.6 (9.4-12.4) fL Immature Gran % (Auto) 0.3 % Neut % (Auto) 74.0 % Lymph % (Auto) 14.5 % [facility] % (Auto) 8.9 % Eos % (Auto) 2.0 % Baso % (Auto) 0.3 % Neut # (Auto) 4.47 (1.40-6.50) K/uL Lymph # (Auto) 0.88 L (1.20-3.40) K/uL [facility] # (Auto) 0.54 (0.11-0.59) K/uL Eos # (Auto) 0.12 (0.00-0.50) K/uL Baso # (Auto) 0.02 (0.00-0.20) K/uL Immature Gran # (Auto) 0.02 (0.01-0.20) K/uL Sodium 143 (136-145) mmol/L Potassium 4.0 (3.5-5.1) mmol/L Chloride 110 H (98-107) mmol/L Carbon Dioxide 24 (21-32) mmol/L Anion Gap 9 (3-11) BUN 20 (6-23) mg/dl Creatinine 1.95 H (0.6-1.2) mg/dl Est Cr Clr Drug Dosing 28.2 ml/min eGFR 25.24 BUN/Creatinine Ratio 10.3 (10-20) Glucose 115 H (70-99(Fasting)) mg/dl Lactate 0.8 (0.4-2.0) mmol/L Calcium 8.9 (8.6-10.3) mg/dl Magnesium 2.4 (1.7-2.4) mg/dl Total Bilirubin 1.8 H (0.2-1.0) mg/dl Direct Bilirubin 0.4 H (0-0.2) mg/dl AST 22 (13-39) U/L ALT 7 (7-52) U/L Alkaline Phosphatase 79 (34-104) U/L Troponin I High Sens 27.6 H 23.2 H (0-14) pg/ml Total Protein 6.3 (6.0-8.3) gm/dl Albumin 3.2 L (3.4-5.0) gm/dl Procalcitonin 0.09 (0-0.5) ng/ml Urine Color Yellow Urine Appearance Clear (Clear) Urine pH 5.0 (4.5-7.5) Ur Specific [place] 1.024 (1.000-1.030) Urine Protein 1+ H (Negative) Urine Glucose (UA) Negative (Negative) Urine Ketones Negative (Negative) Urine Blood Negative (Negative) Urine Nitrite Negative (Negative) Urine Bilirubin Negative (Negative) Urine Urobilinogen Negative (Negative) Ur Leukocyte Esterase Negative (Negative) Urine WBC (Auto) 0-5 (0-5) /hpf Urine RBC (Auto) 0-2 (0-2) /hpf U Hyaline Cast (Auto) 0-2 (0-2) /lpf U Epithel Cells (Auto) 0-2 (0-2) /hpf Urine Bacteria (Auto) None Seen (None Seen) Urine Comment Administered Medications Aspirin (Aspirin 81 Mg Ectab) 81 mg PO DAILY [facility] Stop: 04/27/25 15:14 Last Admin: 03/28/25 15:56 Dose: 81 mg Documented By: GPF Ferrous Sulfate (Ferrous Sulfate 325 Mg Tab) 325 mg PO BID [facility] Stop: 04/27/25 08:59 Last Admin: 03/28/25 08:23 Dose: 325 mg Documented By: GPF Furosemide (Furosemide 40 Mg/4 Ml Vial) 60 mg IV [id number] [facility] Stop: 04/27/25 07:09 Last Admin: 03/28/25 13:45 Dose: 60 mg Documented By: Admin: 03/28/25 08:22 Dose: 60 mg Documented By: GPF Gabapentin (Gabapentin 100 Mg Cap) 100 mg PO TID [facility] Stop: 04/27/25 08:59 Last Admin: 03/28/25 13:45 Dose: 100 mg Documented By: Admin: 03/28/25 08:23 Dose: 100 mg Documented By: GPF Heparin Sodium (Porcine) (Heparin Sod 5,000 Unit/0.5 Ml Vial) 7,500 units SQ Q12 [facility] Stop: 04/27/25 08:59 Last Admin: 03/28/25 08:28 Dose: 7,500 units Documented By: GPF Isosorbide Mononitrate (Isosorbide [facility] Extended Rel 60 Mg Tabcr) 60 mg PO QAM [facility]DIS[facility] Stop: 04/27/25 08:59 Last Admin: 03/28/25 08:23 Dose: 60 mg Documented By: GPF Levothyroxine Sodium (Levothyroxine Sodium 75 Mcg Tablet) 75 mcg PO DAILYBB [facility] Stop: 04/27/25 06:29 Last Admin: 03/28/25 06:27 Dose: 75 mcg Documented By: KES Metoprolol Succinate (Metoprolol Succ 50mg Ext Rel Tab) 100 mg PO QAM ADDIS[facility] Stop: 04/27/25 08:59 Last Admin: 03/28/25 08:23 Dose: 100 mg Documented By: GPF Pantoprazole Sodium (Pantoprazole 40 Mg Tab) 40 mg PO DAILY [facility] Stop: 04/27/25 08:59 Last Admin: 03/28/25 08:23 Dose: 40 mg Documented By: GPF Discontinued Medications Daptomycin 700 mg/ Syringe 14 mls @ 7 mls/min IV NOW ONE; Protocol Stop: 03/28/25 02:18 Last Admin: 03/28/25 03:05 Dose: 7 mls/min Documented By: KLS Ceftriaxone Sodium (Rocephin) 2,000 mg in 50 mls @ 100 mls/hr IV Q24H [facility] Stop: 04/04/25 09:59 Last Infusion: 03/28/25 10:22 Dose: Infused Documented By: Admin: 03/28/25 09:55 Dose: 100 mls/hr Documented By: GPF Doxycycline Hyclate 100 mg/ (Dextrose) 100 mls @ 50 mls/hr IV Q12H [facility]DISON Stop: 04/04/25 08:59 Last Infusion: 03/28/25 10:22 Dose: Infused Documented By: Admin: 03/28/25 08:28 Dose: 50 mls/hr Documented By: GPF Potassium Chloride (Potassium Chloride Crtab 20 Meq Tabcr) 40 meq PO NOW STA Stop: 03/28/25 15:03 Last Admin: 03/28/25 15:56 Dose: 40 meq Documented By: GPF Discharge Plan Visit Data Chief Complaint: Leg Weakness, Bilateral Stated Complaint: WEAKNESS, LEG EDEMA ED Provider: Daysi Roman Discharge Problem: Bilateral cellulitis of lower leg, Elevated troponin, Weakness Patient Disposition: Admitted As Inpatient Condition: Serious Discharge Instructions Interventions: ED Discharge Assessment Last Done: 03/28/25 05:03
[2025-03-28 00:44] LABS: Hematocrit (blood only) 34.6 % (37.0-47.0); Hemoglobin 11.4 g/dl (12.0-16.0); Immature Granulocytes # (auto) 0.02 K/uL (0.01-0.20); Immature Granulocytes % (auto) 0.3 %; Mean Corpuscular Hemoglobin 31.0 pg (25.0-34.0); Mean Corpuscular Volume 94.0 fL (80.0-100.0); Platelet Count 175 K/uL (130-400); RDW Standard Deviation 49.5 fL (36.4-46.3); Red Blood Count 3.68 M/uL (4.20-5.40); White Blood Count 6.05 K/ul (4.8-10.8)
[2025-03-28 01:10] LABS: Alanine Aminotransferase 7.0 U/L (7-52); Alkaline Phosphatase 79.0 U/L (34-104); Anion Gap 9.0 (3-11); Bilirubin,Total 1.8 mg/dl (0.2-1.0); Blood Urea Nitrogen 20.0 mg/dl (6-23); Calcium 8.9 mg/dl (8.6-10.3); Carbon Dioxide 24.0 mmol/L (21-32); Chloride 110.0 mmol/L (98-107); Creatinine Clr Calc Pharmacy 28.2 ml/min; Glucose 115.0 mg/dl (70-99(Fasting)); Magnesium 2.4 mg/dl (1.7-2.4); Potassium 4.0 mmol/L (3.5-5.1); Sodium 143.0 mmol/L (136-145); Total Protein 6.3 gm/dl (6.0-8.3)
[2025-03-28 01:37] LABS: Appearance Urine Clear (Clear); Bacteria Urine Automated None Seen (None Seen); Cast Urine Automated 0-2 /lpf (0-2); Epithelial Cell Urine Auto 0-2 /hpf (0-2); Glucose Urine UA Negative (Negative); RBC Urine Automated 0-2 /hpf (0-2); WBC Urine Automated 0-5 /hpf (0-5)
--- NOTE | 2025-03-28 01:40 | XRay Report ---
EXAM: XR chest 1V portable CLINICAL HISTORY: Sepsis TECHNIQUE: An X-ray image of the chest was obtained in the AP projection. COMPARISON: 04/18/2017. FINDINGS: Pulmonary Parenchyma: There is faint haziness in the right lower lung lobe, likely representing atelectatic changes. There is no evidence of consolidation, collapse, or focal opacities. Pulmonary nodules are not identified. There is no evidence of pleural effusion or pleural thickening. Heart and Mediastinum: Cardiomegaly is seen. There is no mediastinal widening or masses, and no hilar or mediastinal lymphadenopathy. Bony Thorax: The bony thorax appears intact without fractures or deformities. Soft Tissues: The soft tissues overlying the chest wall are unremarkable. IMPRESSION: 1. Cardiomegaly. 2. Faint haziness in the right lower lung lobe, likely representing atelectatic changes. 3. No acute pulmonary abnormalities are identified. 4. No significant interval change. Electronically signed by Fco Marrero 03-28-2025 01:40 AM
[2025-03-28] MEDS: DAPTOmycin 700 MG in SYRINGE 0 ML IV ONE (03:05)
--- NOTE | 2025-03-28 04:04 | History & Physical Report ---
Date of Service March 28, 2025 Assessment & Plan (1) CHF (congestive heart failure): Plan: 80-year-old female with past medical history significant for dyslipidemia, hypothyroidism, hiatal hernia, hypertension, history of CAD, CKD stage III, lymphedema of both lower extremities, who lives alone at home and ambulates with a cane and a walker presents with bilateral lower extremity weakness. Patient states she was unable to get up from the recliner and called EMS. Last couple of days she noticed redness in her legs and also soreness in the legs. Denies any fevers. Denies any chest pain or shortness of breath. Has some back pain. Denies any headache. No cough. No nausea. No earache or runny nose or sore throat. No abdominal pain. Normal bowel and bladder movements. Hemodynamics okay. For EMS seems patient living conditions were deplorable. There were insects and snakes in the house. When asked about it patient states there are black snakes in the house and they are non venomous. Denies snake bites. She states her neighbor checks on her. States her stepdaughter gets groceries for her. Currently resting comfortably and hemodynamically stable. Possible acute CHF Bilateral lower extremity edema History of lymphedema EF 45% on echo on 12/2023 Some weeping seen on left leg Chest x-ray okay Will follow BNP and echo Will also check lower extremity Doppler Telemetry I's and O's Consider cardiology in a.m. for further recommendation Diuretics per cardiology Bilateral lower EXTR cellulitis Received IV Dapto in the ER Will Continue with Rocephin and doxycycline Will Monitor response Abnormal EKG Initial troponin 27 and repeat is 23 Patient denies chest pain or shortness of breath Will follow serial cardiac enzymes and echo and repeat ekg Cardiology consulted History of CAD Seems on medical management On Imdur ,metoprolol and statin History of apical thrombus No longer on Coumadin as per patient. Patient states she stopped anticoagulation about 2 years ago Will follow echo ANN and CKD stage III Baseline creatinine 1.5-1.7 Presented with creatinine 1.9 Holding losartan Will follow repeat labs Hypertension Continue Imdur and metoprolol Holding losartan Will monitor Hypothyroidism On Synthyroid Will follow TSH GERD On Protonix Hyperlipidemia On statin DVT prophylaxis Heparin subcu Disposition Telemetry Full code per discussion with the patient History of Present Illness Chief Complaint: Bilateral lower extremity cellulitis Primary Care Provider: Linda Dhillon DO 80-year-old female with past medical history significant for dyslipidemia, hypothyroidism, hiatal hernia, hypertension, history of CAD, CKD stage III, lymphedema of both lower extremities, who lives alone at home and ambulates with a cane and a walker presents with bilateral lower extremity weakness. Patient states she was unable to get up from the recliner and called EMS. Last couple of days she noticed redness in her legs and also soreness in the legs. Denies any fevers. Denies any chest pain or shortness of breath. Has some back pain. Denies any headache. No cough. No nausea. No earache or runny nose or sore throat. No abdominal pain. Normal bowel and bladder movements. Hemodynamics okay. For EMS seems patient living conditions were deplorable. There were insects and snakes in the house. When asked about it patient states there are black snakes in the house and they are non venomous. Denies snake bites. She states her neighbor checks on her. States her stepdaughter gets groceries for her. Currently resting comfortably and hemodynamically stable. Past medical history. As mentioned above. Past surgical history. EGD. Right total hip replacement. Social history. No smoking. No drug use. No alcohol use. Family history. Mother had lung cancer. Father had OK. Hypertension. Sister has diabetes. Allergies Allergy/AdvReac Type Severity Reaction Status Date / Time No Known Allergies Allergy Unknown Verified 03/28/25 00:32 Home Medications Medication Instructions Recorded Confirmed Type diclofenac sodium 1 % topical gel 2 g topical BID PRN JOINT PAIN 03/28/25 03/28/25 History ergocalciferol (vitamin D2) 1,250 1,250 mcg PO WK 03/28/25 03/28/25 History mcg (50,000 unit) capsule (Vitamin D2) ferrous sulfate 325 mg (65 mg 325 mg PO BID 03/28/25 03/28/25 History iron) tablet (FeroSul) gabapentin 100 mg capsule 100 mg PO TID 03/28/25 03/28/25 History isosorbide mononitrate 60 mg 60 mg PO QAM 03/28/25 03/28/25 History tablet,extended release 24 hr levothyroxine 75 mcg tablet 75 mcg PO DAILYBB 03/28/25 03/28/25 History losartan 50 mg tablet 50 mg PO DAILY 03/28/25 03/28/25 History metoprolol tartrate 100 mg tablet 100 mg PO DAILY 03/28/25 03/28/25 History nitroglycerin 0.4 mg sublingual 0.4 mg sublingual DIRECTED PRN 03/28/25 03/28/25 History tablet (Nitrostat) Chest Pain pantoprazole 20 mg tablet,delayed 20 mg PO DAILY 03/28/25 03/28/25 History release rosuvastatin 10 mg tablet 10 mg PO HS 03/28/25 03/28/25 History tramadol 50 mg tablet 50 mg PO Q6H PRN Pain, Moderate 03/28/25 03/28/25 History Past Med/Surg History Problem List (Updated 03/28/25 @ 04:02 by Maurice Galloway MD) CHF (congestive heart failure) Nephrolithiasis Gross hematuria Hypertension (Chronic) CAD (coronary artery disease) (Chronic) Social History Smoking Status: Never smoker Hx Alcohol Use: No Hx Substance Use: No Preferred Language: Mozambican Communication Ability: Effective Electronic Publishing Specialist Required: No Beliefs That Will Affect Care: None Current Living Situation: Alone Feels Safe at Home: Yes Safety Concerns: Feels Safe At This Time Assistive Devices: Cane and Walker Review of Systems Review of Systems: All systems reviewed & are unremarkable except as noted in HPI & below Physical Exam Physical Exam: General- Not in distress Head- atraumatic Eyes- PERRL. ENT- oropharynx clear Neck- supple, no JVD. Lungs- clear to auscultation no wheezing or crackles Heart- regular rate and rhythm; no murmur, no gallop. Abdomen- normal bowel sounds, soft, nontender, no distension Extremities- b/l lower extremity gross edema and erythema below the knees seen. Warm to palpation Neuro- alert, oriented PERRL, no facial palsy; no dysarthria; moves extremities Results & Data Results & Data Vital Signs (Past 12 Hours) Vital Signs Temp Pulse Pulse Resp BP BP Pulse Ox 03/28/25 03:11 79 16 148/70 H 97 03/28/25 01:31 71 14 136/61 99 03/28/25 01:00 73 17 99 03/28/25 00:30 75 15 154/71 H 96 03/28/25 00:15 71 19 97 03/28/25 00:15 72 17 135/60 98 03/28/25 00:15 72 17 98 03/28/25 00:09 71 03/28/25 00:00 69 15 135/60 98 03/27/25 23:48 71 21 100 03/27/25 23:36 71 16 145/81 H 100 03/27/25 23:20 36.5 C 71 16 145/81 H 100 O2 Del Method 03/28/25 03:11 Room Air 03/28/25 01:31 Room Air 03/28/25 01:00 Room Air 03/28/25 00:30 Room Air 03/28/25 00:15 Room Air 03/28/25 00:15 Room Air 03/28/25 00:15 Room Air 03/28/25 00:09 03/28/25 00:00 Room Air 03/27/25 23:48 Room Air 03/27/25 23:36 Room Air 03/27/25 23:20 Room Air Diagnostic Findings Laboratory Results WBC 6.05 K/ul (4.8-10.8) 03/27/25 23:40 RBC 3.68 M/uL (4.20-5.40) L 03/27/25 23:40 Hgb 11.4 g/dl (12.0-16.0) L 03/27/25 23:40 Hct 34.6 % (37.0-47.0) L 03/27/25 23:40 MCV 94.0 fL (80.0-100.0) 03/27/25 23:40 MCH 31.0 pg (25.0-34.0) 03/27/25 23:40 MCHC 32.9 g/dL (32.0-36.0) 03/27/25 23:40 RDW Std Deviation 49.5 fL (36.4-46.3) H 03/27/25 23:40 RDW Coeff of [place]iley 14.4 % (11.5-14.5) 03/27/25 23:40 Plt Count 175 K/uL (130-400) 03/27/25 23:40 MPV 9.6 fL (9.4-12.4) 03/27/25 23:40 Immature Gran % (Auto) 0.3 % 03/27/25 23:40 Neut % (Auto) 74.0 % 03/27/25 23:40 Lymph % (Auto) 14.5 % 03/27/25 23:40 [place] % (Auto) 8.9 % 03/27/25 23:40 Eos % (Auto) 2.0 % 03/27/25 23:40 Baso % (Auto) 0.3 % 03/27/25 23:40 Neut # (Auto) 4.47 K/uL (1.40-6.50) 03/27/25 23:40 Lymph # (Auto) 0.88 K/uL (1.20-3.40) L 03/27/25 23:40 [place] # (Auto) 0.54 K/uL (0.11-0.59) 03/27/25 23:40 Eos # (Auto) 0.12 K/uL (0.00-0.50) 03/27/25 23:40 Baso # (Auto) 0.02 K/uL (0.00-0.20) 03/27/25 23:40 Immature Gran # (Auto) 0.02 K/uL (0.01-0.20) 03/27/25 23:40 Sodium 143 mmol/L (136-145) 03/27/25 23:40 Potassium 4.0 mmol/L (3.5-5.1) 03/27/25 23:40 Chloride 110 mmol/L (98-107) H 03/27/25 23:40 Carbon Dioxide 24 mmol/L (21-32) 03/27/25 23:40 Anion Gap 9 (3-11) 03/27/25 23:40 BUN 20 mg/dl (6-23) 03/27/25 23:40 Creatinine 1.95 mg/dl (0.6-1.2) H 03/27/25 23:40 Est Cr Clr Drug Dosing 28.2 ml/min 03/27/25 23:40 eGFR 25.24 03/27/25 23:40 BUN/Creatinine Ratio 10.3 (10-20) 03/27/25 23:40 Glucose 115 mg/dl (70-99(Fasting)) H 03/27/25 23:40 Lactate 0.8 mmol/L (0.4-2.0) 03/28/25 00:59 Calcium 8.9 mg/dl (8.6-10.3) 03/27/25 23:40 Magnesium 2.4 mg/dl (1.7-2.4) 03/27/25 23:40 Total Bilirubin 1.8 mg/dl (0.2-1.0) H 03/27/25 23:40 Direct Bilirubin 0.4 mg/dl (0-0.2) H 03/27/25 23:40 AST 22 U/L (13-39) 03/27/25 23:40 ALT 7 U/L (7-52) 03/27/25 23:40 Alkaline Phosphatase 79 U/L (34-104) 03/27/25 23:40 Troponin I High Sens 23.2 pg/ml (0-14) H 03/28/25 00:59 Total Protein 6.3 gm/dl (6.0-8.3) 03/27/25 23:40 Albumin 3.2 gm/dl (3.4-5.0) L 03/27/25 23:40 Procalcitonin 0.09 ng/ml (0-0.5) 03/27/25 23:40 Urine Color Yellow 03/28/25 01:05 Urine Appearance Clear (Clear) 03/28/25 01:05 Urine pH 5.0 (4.5-7.5) 03/28/25 01:05 Ur Specific [place] 1.024 (1.000-1.030) 03/28/25 01:05 Urine Protein 1+ (Negative) H 03/28/25 01:05 Urine Glucose (UA) Negative (Negative) 03/28/25 01:05 Urine Ketones Negative (Negative) 03/28/25 01:05 Urine Blood Negative (Negative) 03/28/25 01:05 Urine Nitrite Negative (Negative) 03/28/25 01:05 Urine Bilirubin Negative (Negative) 03/28/25 01:05 Urine Urobilinogen Negative (Negative) 03/28/25 01:05 Ur Leukocyte Esterase Negative (Negative) 03/28/25 01:05 Urine WBC (Auto) 0-5 /hpf (0-5) 03/28/25 01:05 Urine RBC (Auto) 0-2 /hpf (0-2) 03/28/25 01:05 U Hyaline Cast (Auto) 0-2 /lpf (0-2) 03/28/25 01:05 U Epithel Cells (Auto) 0-2 /hpf (0-2) 03/28/25 01:05 Urine Bacteria (Auto) None Seen (None Seen) 03/28/25 01:05 Urine Comment 03/28/25 01:05 Impressions Chest X-Ray 03/28/25 00:15 EXAM: XR chest 1V portable CLINICAL HISTORY: Sepsis TECHNIQUE: An X-ray image of the chest was obtained in the AP projection. COMPARISON: 04/18/2017. FINDINGS: Pulmonary Parenchyma: There is faint haziness in the right lower lung lobe, likely representing atelectatic changes. There is no evidence of consolidation, collapse, or focal opacities. Pulmonary nodules are not identified. There is no evidence of pleural effusion or pleural thickening. Heart and Mediastinum: Cardiomegaly is seen. There is no mediastinal widening or masses, and no hilar or mediastinal lymphadenopathy. Bony Thorax: The bony thorax appears intact without fractures or deformities. Soft Tissues: The soft tissues overlying the chest wall are unremarkable. IMPRESSION: 1. Cardiomegaly. 2. Faint haziness in the right lower lung lobe, likely representing atelectatic changes. 3. No acute pulmonary abnormalities are identified. 4. No significant interval change. Electronically signed by Fco Marrero 03-28-2025 01:40 AM ECG Additional Comments: ECG. Accelerated junctional rhythm at a rate of 71. Left axis deviation. QTc 449. Code Status & VTE Plan VTE Prophylaxis Plan VTE Prophylaxis will be ordered: Yes
[2025-03-28] MEDS ORDERED: ACETAMINOPHEN 325 MG TAB PO PRN (05:56)
[2025-03-28] MEDS ORDERED: POLYETHYLENE (MIRALAX) 17 GM PACK PO PRN (05:56)
[2025-03-28] MEDS ORDERED: NITROGLYCERIN SL 0.4 MG/TAB TAB SL PRN (05:56)
[2025-03-28] MEDS: LEVOTHYROXINE SODIUM 75 MCG TABLET PO SCH (06:27)
[2025-03-28 07:15] LABS: Hematocrit (blood only) 31.6 % (37.0-47.0); Hemoglobin 9.9 g/dl (12.0-16.0); Immature Granulocytes # (auto) 0.01 K/uL (0.01-0.20); Immature Granulocytes % (auto) 0.2 %; Mean Corpuscular Hemoglobin 29.6 pg (25.0-34.0); Mean Corpuscular Volume 94.6 fL (80.0-100.0); Platelet Count 138 K/uL (130-400); RDW Standard Deviation 50.6 fL (36.4-46.3); Red Blood Count 3.34 M/uL (4.20-5.40); White Blood Count 5.04 K/ul (4.8-10.8)
[2025-03-28 07:30] LABS: Anion Gap 6.0 (3-11); Blood Urea Nitrogen 19.0 mg/dl (6-23); Calcium 8.3 mg/dl (8.6-10.3); Carbon Dioxide 25.0 mmol/L (21-32); Chloride 113.0 mmol/L (98-107); Creatinine Clr Calc Pharmacy 29.9 ml/min; Glucose 95.0 mg/dl (70-99(Fasting)); Magnesium 2.2 mg/dl (1.7-2.4); Potassium 3.9 mmol/L (3.5-5.1); Sodium 144.0 mmol/L (136-145)
[2025-03-28] MEDS: FUROSEMIDE 40 MG/4 ML VIAL IV SCH (08:22)
[2025-03-28] MEDS: FERROUS SULFATE 325 MG TAB PO SCH (08:23)
[2025-03-28] MEDS: GABAPENTIN 100 MG CAP PO SCH (08:23)
[2025-03-28] MEDS: METOPROLOL SUCC 50MG EXT REL TAB PO SCH (08:23)
[2025-03-28] MEDS: ISOSORBIDE MONO EXTENDED REL 60 MG TABCR PO SCH (08:23)
[2025-03-28] MEDS: DOXYCYCLINE HYCLATE 100 MG in DEXTROSE 5% MINI-B 100 ML IV SCH (08:28)
[2025-03-28] MEDS: HEPARIN SOD 5,000 UNIT/0.5 ML VIAL SQ SCH (08:28)
[2025-03-28 08:31] LABS: Thyroid Stimulating Hormone 4.28 uIu/ml (0.300-4.500)
--- NOTE | 2025-03-28 08:34 | Cardiology Consultation ---
Date of Consultation March 28, 2025 Assessment & Plan (1) CHF (congestive heart failure): Plan Assessment: 80 year old female with known history of CAD (medical managed), prior apical thrombus (no longer on AC therapy), stable angina and HFpEF that presents to the ER with bilateral lower extremity edema, erythema and pain. Troponin with mild flat elevation. EKG with no acute ischemic changes. cardiology consulted for additional assessment/recommendations. Plan: Acute CHF: -Patient demonstrates significant volume overload and bilateral lower extremity erythema with serous fluid drainage. -Received IV lasix in the ER and placed on Furosemide 60mg IV BID. Diuresing well. -1100ml fluid balance. -Strict I&O with daily weights. 1500mg low sodium diet. Close monitoring of renal function and serum electrolytes. -Goal serum K> 4.0 and serum Mag> 2.0 -CHF teaching -Obtain echocardiogram to assess overall structure and function. -management of possible cellulitis per primary team. Received IV Rocephin and Doxycycline, has been transitioned to PO Keflex. Case has been discussed with Dr. Dhillon. Further recommendations regarding plan of care as per his assessment. I spent a total of 50 minutes on the date of service in preparation, delivery, documentation of the care provided to the patient excluding any time spent in the performance of separately billed services. TORRES Lopez [facility] Cardiology [facility] Supervising Physician Co-Signing Physician Notes I have personally performed a history and physical examination on the patient. I have reviewed the advance practitioner's documentation, and I agree with, and take responsibility for the plan of care. 80-year-old female presents to emergency department 03/28/2025 secondary to lower extremity edema, with associated erythema and drainage. Mildly elevated high- sensitivity troponin without anginal symptoms. ECG demonstrating low amplitude P waves with a first-degree AV block. Telemetry confirms the same. No arrhythmia. Clinically improved with IV diuresis since admission. Her lower extremity does appear erythematous with serosanguineous drainage. Denies fever or chills. Bedside echocardiogram demonstrates a small apical LV scar with mildly reduced LV function. Findings are similar to echocardiogram performed in December 2023. History of medically managed myocardial infarction and apical scar with LV thrombus 2000. No longer on chronic anticoagulation. No evidence of thrombus per echocardiogram on admission. Recommendations: * Continue IV diuresis, furosemide 60 mg twice daily * Antibiotics as per internal medicine * Continue isosorbide, rosuvastatin, Jardiance, metoprolol succinate as ordered * Consider addition of low-dose Aldactone during hospitalization * Monitor fluid balance, daily, GFR, electrolytes. * Add aspirin 81 mg daily. Maximino Dhillon DO, [facility] I spent a total of 35 minutes on the date of service in preparation, delivery, and documentation of the care provided to this patient, excluding any time spent in the performance of separately billed services. History of Present Illness Reason for Consultation: CHF; abnormal EKG Requesting Physician: Denise hospitalist Attending Physician: Todd Correa DO History of Present Illness HPI: Patient is a 80 year old female with PMHx as outlined below presented to the ER with complaints of ambulatory dysfunction, bilateral leg redness and pain. Upon EMS arrival, it was reported that she is living in deplorable conditions with bugs/rodents and snakes in the house. Upon seeing patient she is resting comfortably in bed at this time. She reports that she has been feeling her usual state of health, but over the past week has endorsed significant increase in her lower extremity swelling with pain/tenderness. she states "my legs just felt like logs". She denies any chest pain, pressure or palpitations, Denies shorteness of breath, no pre-syncope or syncope. Patient lives alone with a few neighbors that check on her, bring in her mail and mow her grass. She has a step daughter that will bring her a meal once a week, but also bring groceries. Patient does not follow any particular diet or low sodium diet. She reports she eats a lot of snack cakes, pies, chips. Her approximately 4 years ago. Denies any fever, chills or recent URI symptoms. She states her legs were so swollen fluid would just "run from them" Problem List: 1. Prior anteroapical myocardial infarction, November of 2000, managed medically without defined coronary anatomy. 2. Anteroapical infarct with mild left ventricular dysfunction and apical thrombus, chronic.--patient states she has been off warfarin for over 2 years 3. compensated class 2 congestive heart failure 4. Stable class I-II angina pectoris. 5. Hypertension. 6. Hyperlipidemia. 7. Hypothyroidism 8. Chronic lymphedema of bilateral lower extremities Patient has not seen cardiology since 2019. EKG on admission suggestive of accelerated junctional rhythm. inferior and anterolateral infarct. Rate 71bpm. QTC 449ms. Repeat EKG obtained demonstrates SR with 1st degree AVB, rates 70's Chest x-ray: IMPRESSION: 1. Cardiomegaly. 2. Faint haziness in the right lower lung lobe, likely representing atelectatic changes. 3. No acute pulmonary abnormalities are identified. 4. No significant interval change. H/H 9.9/31.6 High sensitivity troponin: 27.6/23.2/19.9/49.6 Review of telemetry shows SR with 1st degree AVB. Allergies Allergy/AdvReac Type Severity Reaction Status Date / Time No Known Allergies Allergy Unknown Verified 03/28/25 00:32 Home Medications Medication Instructions Recorded Confirmed Type diclofenac sodium 1 % topical gel 2 g topical BID PRN JOINT PAIN 03/28/25 03/28/25 History ergocalciferol (vitamin D2) 1,250 1,250 mcg PO WK 03/28/25 03/28/25 History mcg (50,000 unit) capsule (Vitamin D2) ferrous sulfate 325 mg (65 mg 325 mg PO BID 03/28/25 03/28/25 History iron) tablet (FeroSul) gabapentin 100 mg capsule 100 mg PO TID 03/28/25 03/28/25 History isosorbide mononitrate 60 mg 60 mg PO QAM 03/28/25 03/28/25 History tablet,extended release 24 hr levothyroxine 75 mcg tablet 75 mcg PO DAILYBB 03/28/25 03/28/25 History losartan 50 mg tablet 50 mg PO DAILY 03/28/25 03/28/25 History metoprolol tartrate 100 mg tablet 100 mg PO DAILY 03/28/25 03/28/25 History nitroglycerin 0.4 mg sublingual 0.4 mg sublingual DIRECTED PRN 03/28/25 03/28/25 History tablet (Nitrostat) Chest Pain pantoprazole 20 mg tablet,delayed 20 mg PO DAILY 03/28/25 03/28/25 History release rosuvastatin 10 mg tablet 10 mg PO HS 03/28/25 03/28/25 History tramadol 50 mg tablet 50 mg PO Q6H PRN Pain, Moderate 03/28/25 03/28/25 History Patient History Social History (Reviewed 01/27/23 @ 11:13 by KHALIDA Bowen Smoking Status: Never smoker Hx Alcohol Use: No Hx Substance Use: No Preferred Language: [place] Communication Ability: Effective Division Engineer Required: No Beliefs That Will Affect Care: None Current Living Situation: Alone Feels Safe at Home: Yes Safety Concerns: Feels Safe At This Time Assistive Devices: Cane and Walker Review of Systems Review of Systems: All systems reviewed & are unremarkable except as noted in HPI & below Physical Exam Constitutional: well developed, well nourished and + ill appearing; no acute distress Neck: normal visual inspection and trachea midline Respiratory: normal respiratory effort; no respiratory distress and no labored breathing Auscultation: + diminished lung sounds Cardiovascular: Rate/Rhythm: regular rate and regular rhythm (1st degree AVB) Heart Sounds: normal S1 and normal S2; no murmur Vessels: dorsalis pedis pulses present; no JVD Extremities: + edema (+3 BLE) Skin: + erythema (Bilateral lower extremities) Psychiatric: A+Ox3, euthymic affect Results & Data Vital Signs (Past 12 Hours) Vital Signs Temp Pulse Pulse Resp BP BP Pulse Ox 03/28/25 07:30 36.5 C 71 18 111/69 98 03/28/25 06:01 36.5 C 73 20 156/85 H 97 03/28/25 05:59 03/28/25 05:03 74 18 99/75 L 97 03/28/25 05:00 74 16 97 03/28/25 04:00 81 17 118/57 L 99 03/28/25 03:35 79 03/28/25 03:30 79 20 131/72 98 03/28/25 03:11 79 16 148/70 H 97 03/28/25 03:06 79 23 148/70 H 98 03/28/25 02:30 79 20 156/79 H 97 03/28/25 02:01 72 18 140/75 96 03/28/25 01:31 71 14 136/61 99 03/28/25 01:00 73 17 99 03/28/25 00:30 75 15 154/71 H 96 03/28/25 00:15 71 19 97 03/28/25 00:15 72 17 135/60 98 03/28/25 00:15 72 17 98 03/28/25 00:09 71 03/28/25 00:00 69 15 135/60 98 03/27/25 23:48 71 21 100 03/27/25 23:36 71 16 145/81 H 100 03/27/25 23:20 36.5 C 71 16 145/81 H 100 O2 Del Method 03/28/25 07:30 Room Air 03/28/25 06:01 Room Air 03/28/25 05:59 Room Air 03/28/25 05:03 Room Air 03/28/25 05:00 Room Air 03/28/25 04:00 Room Air 03/28/25 03:35 03/28/25 03:30 Room Air 03/28/25 03:11 Room Air 03/28/25 03:06 Room Air 03/28/25 02:30 Room Air 03/28/25 02:01 Room Air 03/28/25 01:31 Room Air 03/28/25 01:00 Room Air 03/28/25 00:30 Room Air 03/28/25 00:15 Room Air 03/28/25 00:15 Room Air 03/28/25 00:15 Room Air 03/28/25 00:09 03/28/25 00:00 Room Air 03/27/25 23:48 Room Air 03/27/25 23:36 Room Air 03/27/25 23:20 Room Air Laboratory Results Cardiac Enzymes 03/27/25 03/28/25 03/28/25 Range/Units 23:40 00:59 03:35 AST 22 (13-39) U/L Troponin I High Sens 27.6 H 23.2 H 19.9 H (0-14) pg/ml B-Natriuretic Peptide (0-100) pg/ml 03/28/25 Range/Units 07:00 AST (13-39) U/L Troponin I High Sens (0-14) pg/ml B-Natriuretic Peptide 390 H (0-100) pg/ml Coagulation 03/28/25 Range/Units 07:00 B-Natriuretic Peptide 390 H (0-100) pg/ml CBC 03/27/25 03/28/25 Range/Units 23:40 07:00 WBC 6.05 5.04 (4.8-10.8) K/ul RBC 3.68 L 3.34 L (4.20-5.40) M/uL Hgb 11.4 L 9.9 L (12.0-16.0) g/dl Hct 34.6 L 31.6 L (37.0-47.0) % Plt Count 175 138 (130-400) K/uL Neut # (Auto) 4.47 3.44 (1.40-6.50) K/uL Lymph # (Auto) 0.88 L 1.02 L (1.20-3.40) K/uL [place] # (Auto) 0.54 0.46 (0.11-0.59) K/uL Eos # (Auto) 0.12 0.10 (0.00-0.50) K/uL Baso # (Auto) 0.02 0.01 (0.00-0.20) K/uL Comprehensive Metabolic Panel 03/27/25 03/28/25 Range/Units 23:40 07:00 Sodium 143 144 (136-145) mmol/L Potassium 4.0 3.9 (3.5-5.1) mmol/L Chloride 110 H 113 H (98-107) mmol/L Carbon Dioxide 24 25 (21-32) mmol/L BUN 20 19 (6-23) mg/dl Creatinine 1.95 H 1.81 H (0.6-1.2) mg/dl Glucose 115 H 95 (70-99(Fasting)) mg/dl Calcium 8.9 8.3 L (8.6-10.3) mg/dl Direct Bilirubin 0.4 H (0-0.2) mg/dl AST 22 (13-39) U/L ALT 7 (7-52) U/L Alkaline Phosphatase 79 (34-104) U/L Total Protein 6.3 (6.0-8.3) gm/dl Albumin 3.2 L (3.4-5.0) gm/dl Intake and Output 03/27/25 03/28/25 03/28/25 22:59 06:59 14:59 Intake Total 0 / 0 150 / 150 Output Total 100 / 100 1150 / 1150 Balance -100 / -100 -1000 / -1000 Intake: IV 150 / 150 Doxycycline Hyclate 100 mg In 100 / 100 Dextrose 5% Mini-B 100 ml @ 50 mls/hr IV Q12H [facility] Rx#:[id number] cefTRIAXone SODIUM 2,000 mg In 50 / 50 50 ml @ 100 mls/hr IV Q24H [facility] Rx#:[id number] Oral 0 / 0 Output: Urine 100 / 100 Urine Amount (Catheter) 1150 / 1150 External 1150 / 1150 Other: Other Intake Source NPO Sips chips Weight 111.8 kg Weight Measurement Method Built in [facility] Care Time/CCT Total # of Minutes Spent Total Time Spent with Patient: Total time spent is greater than 50% in coordination of care (as documented) at patient's floor/unit and/or counseling patient: [place] [address] IN/OBS CONSULT LVL 5,80M Patient Type New Diagnoses CHF (congestive heart failure) I50.9 Time Spent (min) 50
[2025-03-28] MEDS ORDERED: METOPROLOL TARTRATE 100 MG TAB PO SCH (09:00)
[2025-03-28] MEDS: cefTRIAXone SODIUM 2,000 MG/50 ML BAG IV SCH (09:55)
[2025-03-28 10:45] LABS: Hemoglobin A1C 6.0 % (4.5-5.6)
--- NOTE | 2025-03-28 13:46 | Ultrasound Report ---
BILATERAL LOWER EXTREMITY VENOUS DOPPLER HISTORY: b/l lower ext edema and erythema COMPARISON STUDY: None. FINDINGS: Subcutaneous edema of the lower legs. Fluid collection within the lateral right calf measur es up to approximately 7.7 x 1.1 x 5.6 cm which appears to be subcutaneous in location. There is norm al compressibility, flow, and augmentation within the bilateral lower extremity deep venous systems. IMPRESSION: 1. No DVT within the right or left lower extremity. 2. 8 cm fluid collection within the right lower leg, possibly a hematoma. Correlate clinically. ACT 112: Negative or not required by law. Electronically signed by: Danny Williamson M.D. 03/28/2025 1:45 PM
--- NOTE | 2025-03-28 14:57 | Hospitalist Progress Note ---
Date of Service March 28, 2025 Assessment & Plan (1) Acute on chronic heart failure with mildly reduced ejection fraction (HFmrEF): (2) Demand ischemia of myocardium: (3) Chronic renal failure (CRF), stage 3b: (4) Lymphedema associated with obesity: (5) Prediabetes: (6) Chronic stable angina: (7) Morbid obesity: (8) CAD (coronary artery disease): Plan Patient 80-year-old female who has acute on chronic heart failure with mild reduced ejection fraction and possibly some lower extremity cellulitis versus chronic ruborous changes from edema. WBC is normal, lactic acid normal, procalcitonin normal can discontinue IV antibiotics and transition to oral Keflex Change metoprolol to tartrate to metoprolol succinate with reduced ejection fraction IV diuresis with Lasix Monitor electrolytes and renal function Start Jardiance for goal-directed medical therapy in the setting of reduced ejection fraction as well as prediabetes Lower extremity ultrasound was negative for DVT, question of fluid collection on the right lateral calf. At this point we will continue to monitor did not appreciate significant area of fluctuance, did not appreciate an area of abscess formation on clinical exam. Will continue to evaluate daily. Compression wraps lower extremities bilaterally Continue current Synthroid dosing, TSH in therapeutic range Therapies Case management for disposition planning, per report from EMS patient's living condition is suboptimal. Anticipate need for office of aging Admission and Anticipated Discharge Date Admission Date: March 28, 2025 Subjective Patient denies any real specific symptoms. Denies chest pain, no shortness of breath. No real significant leg pain. She did mention though that her legs have gotten really heavy over the last multiple weeks. She has had several falls when trying to ambulate around her house due to her heavy legs. EMS has been in a few times to pick her up off the floor but she declined going to the hospital each time. Physical Exam Physical Exam: Constitutional: Alert, nontoxic, obese HEENT: Mucous membranes moist. Lungs: Decreased breath sounds, few crackles at bases CV: S1-S2, regular, systolic murmur Abdomen: Soft, nontender, nondistended Extremities: Thick, hard, chronic lymphedema lower extremities, edema up through posterior thighs. Pella texture to the skin Bilateral lower extremities with some ruborous changes with the swelling, right lower extremity with some moist, weeping skin in the lateral aspect. No increased tenderness to palpation, no obvious area of fluctuance Neuro: No focal deficits, generalized weakness Psych: Cooperative, normal mood Results & Data Results & Data Vital Signs (Past 12 Hours) Vital Signs Temp Pulse Pulse Resp BP BP Pulse Ox 03/28/25 11:14 36.6 C 66 18 98/60 L 98 03/28/25 07:30 36.5 C 71 18 111/69 98 03/28/25 06:01 36.5 C 73 20 156/85 H 97 03/28/25 05:59 03/28/25 05:03 74 18 99/75 L 97 03/28/25 05:00 74 16 97 03/28/25 04:00 81 17 118/57 L 99 03/28/25 03:35 79 03/28/25 03:30 79 20 131/72 98 03/28/25 03:11 79 16 148/70 H 97 03/28/25 03:06 79 23 148/70 H 98 O2 Del Method 03/28/25 11:14 Room Air 03/28/25 07:30 Room Air 03/28/25 06:01 Room Air 03/28/25 05:59 Room Air 03/28/25 05:03 Room Air 03/28/25 05:00 Room Air 03/28/25 04:00 Room Air 03/28/25 03:35 03/28/25 03:30 Room Air 03/28/25 03:11 Room Air 03/28/25 03:06 Room Air Diagnostic Findings Reviewed imaging, laboratory and diagnostic studies. Pertinent findings as below. WBCs 5.0 Hemoglobin 9.9 Electrolytes stable Creatinine 1.81, baseline Hemoglobin A1c 6.0% Lactate 0.8 Troponins reviewed TSH 4.2 Procalcitonin 0.09 Urinalysis negative for signs of infection Ultrasound lower extremity negative for DVT, questionable fluid collection right lateral calf. Could not really define this area on physical exam Echocardiogram shows ejection fraction 40 to 49%. No significant right ventricular dysfunction. Reviewed outside EMR, creatinine fluctuating between 1.7-2.3
[2025-03-28] MEDS: POTASSIUM CHLORIDE CRTAB 20 MEQ TABCR PO STA (15:56)
[2025-03-28] MEDS: ASPIRIN 81 MG ECTAB PO SCH (15:56)
[2025-03-28] MEDS: ROSUVASTATIN CALCIUM 10 MG TAB PO SCH (20:20)
--- NOTE | 2025-03-29 06:29 | Electrocardiogram Report ---
Test Reason : Blood Pressure : */* mmHG Vent. Rate : 71 BPM Atrial Rate : * BPM P-R Int : 322 ms QRS Dur : 92 ms QT Int : 414 ms P-R-T Axes : * -48 22 degrees QTcB Int : 449 ms Sinus rhythm with 1st degree A-V block Left axis deviation Low voltage QRS Inferior infarct , age undetermined Anterior infarct Abnormal ECG When compared with ECG of 18-Apr-2017 15:43, Inferior infarct is now Present Confirmed by Gurmeet Gomez ([id number]) on 03/29/2025 6:29:08 AM Referred By: REFERRED SELF Confirmed By: Gurmeet Gomez
--- NOTE | 2025-03-29 06:31 | Electrocardiogram Report ---
Test Reason : Blood Pressure : */* mmHG Vent. Rate : 70 BPM Atrial Rate : * BPM P-R Int : 306 ms QRS Dur : 110 ms QT Int : 426 ms P-R-T Axes : * -59 119 degrees QTcB Int : 460 ms Poor data quality, interpretation may be adversely affected Possible Sinus rhythm with 1st degree A-V block Left anterior fascicular block Possible Inferior infarct (cited on or before 24-Nov-2000) Anterior infarct Abnormal ECG When compared with ECG of 28-Mar-2025 00:19, Nonspecific T wave abnormality now evident in Lateral leads Confirmed by Gurmeet Gomez ([id number]) on 03/29/2025 6:31:21 AM Referred By: REFERRED SELF Confirmed By: Gurmeet Gomez
[2025-03-29 06:57] LABS: Anion Gap 8.0 (3-11); Calcium 8.4 mg/dl (8.6-10.3); Carbon Dioxide 27.0 mmol/L (21-32); Chloride 107.0 mmol/L (98-107); Magnesium 2.1 mg/dl (1.7-2.4); Potassium 4.3 mmol/L (3.5-5.1); Sodium 142.0 mmol/L (136-145)
[2025-03-29 07:02] LABS: Blood Urea Nitrogen 28.0 mg/dl (6-23); Creatinine Clr Calc Pharmacy 23.7 ml/min; Glucose 97.0 mg/dl (70-99(Fasting))
[2025-03-29] MEDS: EMPAGLIFLOZIN 10 MG TAB PO SCH (08:36)
--- NOTE | 2025-03-29 13:03 | Hospitalist Progress Note ---
Date of Service March 29, 2025 Assessment & Plan (1) Acute on chronic heart failure with mildly reduced ejection fraction (HFmrEF): (2) Demand ischemia of myocardium: (3) Chronic renal failure (CRF), stage 3b: (4) Lymphedema associated with obesity: (5) Prediabetes: (6) Chronic stable angina: (7) Morbid obesity: (8) CAD (coronary artery disease): Plan Patient 80-year-old female who has acute on chronic heart failure with mild reduced ejection fraction and possibly some lower extremity cellulitis versus chronic ruborous changes from edema. Acute heart failure with mildly reduced EF Troponin elevation--demand ischemia --CXR:Cardiomegaly. Faint haziness in the right lower lung lobe, likely representing atelectatic changes. No acute pulmonary abnormalities are identified. No significant interval change. --ECHO: EF 45 to 50%.Moderate sized apical wall motion abnormality with akinesis of the segments. Aortic valve sclerosis mild, without significant stenosis. Mild tricuspid regurgitation. Trivial loculated posterior pericardial effusion. Findings do not suggest cardiac tamponade. When compared to prior echo, no significant change. --BNP 390 --Was started on IV Lasix 60 mg twice a day----hold second dose today given rising creatinine levels Monitor I's and O's, daily weight Appreciate cardiology input Monitor and replete electrolytes as needed Was also started on Jardiance Continue fluid restriction Continue metoprolol succinate, isosorbide Monitor volume status Chronic lymphedema Suspected lower extremity cellulitis Chronic venous stasis -Venous Doppler showed no DVT -Daptomycin transition to Keflex Morbid obesity BMI 41 ANN on CKD stage IIIb Baseline creatinine ~1.9 Creatinine 2.2 today Avoid nephrotoxic agents as able Monitor renal function Other chronic conditions: Coronary artery disease History of apical thrombus--no longer on anticoagulation Hypertension Hypothyroidism-continue levothyroxine- GERD Hyperlipidemia Continue home medications as able DVT Px: Heparin SQ CODE STATUS Full code Disposition Suboptimal living conditions per record Case management to help with discharge planning PT recommends acute rehab Admission and Anticipated Discharge Date Admission Date: March 28, 2025 Subjective Patient is seen and examined at bedside States having trouble ambulating Subjectively feels leg edema improving today Reports chronic back pain Denies any chest pain, dyspnea, nausea, vomiting, abdominal pain Review of Systems Review of Systems: All systems reviewed & are unremarkable except as noted in Subjective Physical Exam Physical Exam: Physical Exam: Vitals signs as noted above General Appearance:Obese, no apparent distress, chronic ill-appearing, elderly Head: normocephalic, Atraumatic Eyes: normal inspection, EOMI Neck: supple, Trachea midline Respiratory/Chest: Decreased breath sounds, CTA, No accessory muscle use Cardiovascular: S1, S2, No murmur Abdomen/GI:Soft, Non tender, Bowel sounds present Extremities/Musculoskeletal:normal inspection, B/L LE edema, Erythema wrapped Neurologic/Psych:AAOX3, grossly no focal neurological deficits Skin: normal color, warm Results & Data Results & Data Vital Signs (Past 12 Hours) Vital Signs Temp Pulse Pulse Resp BP Pulse Ox O2 Del Method 03/29/25 11:55 36.5 C 66 18 104/64 97 Room Air 03/29/25 08:05 36.5 C 74 18 133/76 96 Room Air 03/29/25 04:33 72 03/29/25 04:00 36.7 C 72 18 128/68 97 Room Air Laboratory Results [facility] 03/29/25 05:58 Sodium 142 Potassium 4.3 Chloride 107 Carbon Dioxide 27 BUN 28 H Creatinine 2.28 H D Glucose 97 Calcium 8.4 L
--- NOTE | 2025-03-29 13:15 | Cardiology Progress Note ---
<Statement entered by Angelita Bhatia, DO - 03/29/25 15:40> I have reviewed the advanced practitioner's documentation and agree with the plan of care. I accept the responsibility for the associated risk. Pt seen in cardiology follow up due to acute on chronic heart failure with preserved EF-NYHA Class III pt has responded to IV lasix; recommend stopping the IV diuresis and start torsemide 20mg daily tomorrow if kidney function is better tomorrow i would hold off on aldactone and we can assess this as an outpatient Please re-consult as necessary I discussed the case and my recommendations with the hospitalist over the phone and he agreed with my plan My nurse practitioner and I together spent a total of [60] minutes coordinating, documenting, and providing care for this patient excluding time spent in the performance of separately billed services or time spent by another provider/QHP. Date of Service March 29, 2025 Assessment & Plan (1) CHF (congestive heart failure): Plan -HR and BP currently well controlled - fluid balance -3.7 L - renal function increased with the lasix -volume status significantly improved -continue Imdur, rosuvastatin, Toprol, Jardiance, and ASA -would hold off on Aldactone given the ANN, can be readdressed as an outpatient -hold diuresis for the rest of today, if renal function improves tomm can restart oral diuretics recommend torsemide 20 mg daily -Strict I&O with daily weights. 2 gm low sodium diet. -recommend serum K> 4.0 and serum Mag> 2.0 -echo completed yesterday unchanged from prior -management of cellulitis per primary team Case discussed with Dr. Bhatia. Please see attestation for additional recommendations. I spent a total of 40 minutes on the date of service in preparation, delivery, and documentation of the care provided to the patient excluding any time spent in the performance of separately billed services. TORRES Dewey Department of Cardiology, [facility] This chart was completed in part utilizing Speech Voice Recognition Software. Grammatical errors, random word insertions, pronoun errors, and incomplete sentences are an occasional consequence of this system due to software limitations, ambient noise, and hardware issues. Any formal questions or concerns about the content, text, or information contained within the body of this dictation should be directly addressed to the provider for clarification. Admission and Anticipated Discharge Date Admission Date: March 28, 2025 Subjective 80 year old female seen in follow up today in regard to CHF exacerbation. She is overall feeling better. Still has some edema and redness with drainage to the legs with cellulitis but improving. Review of Systems Review of Systems: All systems reviewed & are unremarkable except as noted in HPI & below Physical Exam Constitutional: WD/WN, vitals as above well developed and well nourished; no acute distress Eyes: PERRL, conjunctivae normal, anicteric sclerae Neck: trachea midline, no thyromegaly Respiratory: normal respiratory effort, lungs clear to auscultation Cardiovascular: Rate/Rhythm: regular rate and regular rhythm Heart Sounds: normal S1 and normal S2; no murmur Extremities: + edema Gastrointestinal (Abdomen): normal bowel sounds, soft, nontender, no hepatosplenomegaly Results & Data Vital Signs (Past 12 Hours) Vital Signs Temp Pulse Pulse Resp BP Pulse Ox O2 Del Method 03/29/25 11:55 36.5 C 66 18 104/64 97 Room Air 03/29/25 08:05 36.5 C 74 18 133/76 96 Room Air 03/29/25 04:33 72 03/29/25 04:00 36.7 C 72 18 128/68 97 Room Air Laboratory Results Comprehensive Metabolic Panel 03/29/25 Range/Units 05:58 Sodium 142 (136-145) mmol/L Potassium 4.3 (3.5-5.1) mmol/L Chloride 107 (98-107) mmol/L Carbon Dioxide 27 (21-32) mmol/L BUN 28 H (6-23) mg/dl Creatinine 2.28 H D (0.6-1.2) mg/dl Glucose 97 (70-99(Fasting)) mg/dl Calcium 8.4 L (8.6-10.3) mg/dl Intake and Output 03/28/25 03/29/25 03/29/25 22:59 06:59 14:59 Intake Total 540 / 1140 50 / 1140 Output Total 1949 / 5850 165 / 5850 Balance -1410 / -4710 -1600 / -4710 Intake: Oral 540 / 990 50 / 990 Output: Urine Amount (Catheter) 194950 165 / 5850 External 194950 1649 5850 Other: # Unmeasured Voids 1 1 Diagnostic Findings Laboratory Results WBC 5.04 K/ul (4.8-10.8) 03/28/25 07:00 RBC 3.34 M/uL (4.20-5.40) L 03/28/25 07:00 Hgb 9.9 g/dl (12.0-16.0) L 03/28/25 07:00 Hct 31.6 % (37.0-47.0) L 03/28/25 07:00 MCV 94.6 fL (80.0-100.0) 03/28/25 07:00 MCH 29.6 pg (25.0-34.0) 03/28/25 07:00 MCHC 31.3 g/dL (32.0-36.0) L 03/28/25 07:00 RDW Std Deviation 50.6 fL (36.4-46.3) H 03/28/25 07:00 RDW Coeff of Hailey 14.5 % (11.5-14.5) 03/28/25 07:00 Plt Count 138 K/uL (130-400) 03/28/25 07:00 MPV 9.3 fL (9.4-12.4) L 03/28/25 07:00 Immature Gran % (Auto) 0.2 % 03/28/25 07:00 Neut % (Auto) 68.3 % 03/28/25 07:00 Lymph % (Auto) 20.2 % 03/28/25 07:00 [place] % (Auto) 9.1 % 03/28/25 07:00 Eos % (Auto) 2.0 % 03/28/25 07:00 Baso % (Auto) 0.2 % 03/28/25 07:00 Neut # (Auto) 3.44 K/uL (1.40-6.50) 03/28/25 07:00 Lymph # (Auto) 1.02 K/uL (1.20-3.40) L 03/28/25 07:00 [place] # (Auto) 0.46 K/uL (0.11-0.59) 03/28/25 07:00 Eos # (Auto) 0.10 K/uL (0.00-0.50) 03/28/25 07:00 Baso # (Auto) 0.01 K/uL (0.00-0.20) 03/28/25 07:00 Immature Gran # (Auto) 0.01 K/uL (0.01-0.20) 03/28/25 07:00 Sodium 142 mmol/L (136-145) 03/29/25 05:58 Potassium 4.3 mmol/L (3.5-5.1) 03/29/25 05:58 Chloride 107 mmol/L (98-107) 03/29/25 05:58 Carbon Dioxide 27 mmol/L (21-32) 03/29/25 05:58 Anion Gap 8 (3-11) 03/29/25 05:58 BUN 28 mg/dl (6-23) H 03/29/25 05:58 Creatinine 2.28 mg/dl (0.6-1.2) H D 03/29/25 05:58 Est Cr Clr Drug Dosing 23.7 ml/min 03/29/25 05:58 eGFR 20.92 03/29/25 05:58 BUN/Creatinine Ratio 12.3 (10-20) 03/29/25 05:58 Glucose 97 mg/dl (70-99(Fasting)) 03/29/25 05:58 POC Glucose 93 mg/dl (70-99) 03/29/25 07:27 Estimat Average Glucose 126 mg/dl 03/28/25 07:00 Hemoglobin A1c 6.0 % (4.5-5.6) H 03/28/25 07:00 Lactate 0.8 mmol/L (0.4-2.0) 03/28/25 00:59 Calcium 8.4 mg/dl (8.6-10.3) L 03/29/25 05:58 Magnesium 2.1 mg/dl (1.7-2.4) 03/29/25 05:58 Total Bilirubin 1.8 mg/dl (0.2-1.0) H 03/27/25 23:40 Direct Bilirubin 0.4 mg/dl (0-0.2) H 03/27/25 23:40 AST 22 U/L (13-39) 03/27/25 23:40 ALT 7 U/L (7-52) 03/27/25 23:40 Alkaline Phosphatase 79 U/L (34-104) 03/27/25 23:40 Troponin I High Sens 19.9 pg/ml (0-14) H 03/28/25 03:35 B-Natriuretic Peptide 390 pg/ml (0-100) H 03/28/25 07:00 Total Protein 6.3 gm/dl (6.0-8.3) 03/27/25 23:40 Albumin 3.2 gm/dl (3.4-5.0) L 03/27/25 23:40 Procalcitonin 0.09 ng/ml (0-0.5) 03/27/25 23:40 TSH 4.280 uIu/ml (0.300-4.500) 03/28/25 07:00 Urine Color Yellow 03/28/25 01:05 Urine Appearance Clear (Clear) 03/28/25 01:05 Urine pH 5.0 (4.5-7.5) 03/28/25 01:05 Ur Specific [place] 1.024 (1.000-1.030) 03/28/25 01:05 Urine Protein 1+ (Negative) H 03/28/25 01:05 Urine Glucose (UA) Negative (Negative) 03/28/25 01:05 Urine Ketones Negative (Negative) 03/28/25 01:05 Urine Blood Negative (Negative) 03/28/25 01:05 Urine Nitrite Negative (Negative) 03/28/25 01:05 Urine Bilirubin Negative (Negative) 03/28/25 01:05 Urine Urobilinogen Negative (Negative) 03/28/25 01:05 Ur Leukocyte Esterase Negative (Negative) 03/28/25 01:05 Urine WBC (Auto) 0-5 /hpf (0-5) 03/28/25 01:05 Urine RBC (Auto) 0-2 /hpf (0-2) 03/28/25 01:05 U Hyaline Cast (Auto) 0-2 /lpf (0-2) 03/28/25 01:05 U Epithel Cells (Auto) 0-2 /hpf (0-2) 03/28/25 01:05 Urine Bacteria (Auto) None Seen (None Seen) 03/28/25 01:05 Urine Comment 03/28/25 01:05 Lyme Disease Screen Negative (Negative) 03/29/25 05:58 Impressions Chest X-Ray 03/28/25 00:15 EXAM: XR chest 1V portable CLINICAL HISTORY: Sepsis TECHNIQUE: An X-ray image of the chest was obtained in the AP projection. COMPARISON: 04/18/2017. FINDINGS: Pulmonary Parenchyma: There is faint haziness in the right lower lung lobe, likely representing atelectatic changes. There is no evidence of consolidation, collapse, or focal opacities. Pulmonary nodules are not identified. There is no evidence of pleural effusion or pleural thickening. Heart and Mediastinum: Cardiomegaly is seen. There is no mediastinal widening or masses, and no hilar or mediastinal lymphadenopathy. Bony Thorax: The bony thorax appears intact without fractures or deformities. Soft Tissues: The soft tissues overlying the chest wall are unremarkable. IMPRESSION: 1. Cardiomegaly. 2. Faint haziness in the right lower lung lobe, likely representing atelectatic changes. 3. No acute pulmonary abnormalities are identified. 4. No significant interval change. Electronically signed by Fco Marrero 03-28-2025 01:40 AM Venous Doppler Study 03/28/25 05:56 BILATERAL LOWER EXTREMITY VENOUS DOPPLER HISTORY: b/l lower ext edema and erythema COMPARISON STUDY: None. FINDINGS: Subcutaneous edema of the lower legs. Fluid collection within the lateral right calf measures up to approximately 7.7 x 1.1 x 5.6 cm which appears to be subcutaneous in location. There is normal compressibility, flow, and augmentation within the bilateral lower extremity deep venous systems. IMPRESSION: 1. No DVT within the right or left lower extremity. 2. 8 cm fluid collection within the right lower leg, possibly a hematoma. Correlate clinically. ACT 112: Negative or not required by law. Electronically signed by: Danny Williamson M.D. 03/28/2025 1:45 PM Medications Administered Current Inpatient Medications Acetaminophen (Acetaminophen 325 Mg Tab) 650 mg PO Q4H PRN PRN Reason: Pain or Fever Stop: 04/27/25 05:55 Aspirin (Aspirin 81 Mg Ectab) 81 mg PO DAILY [facility] Stop: 04/27/25 15:14 Last Admin: 03/29/25 08:35 Dose: 81 mg Cephalexin HCl (Cephalexin 500 Mg Cap) 500 mg PO BID [facility]; Protocol Stop: 04/04/25 20:59 Last Admin: 03/29/25 08:35 Dose: 500 mg Empagliflozin (Empagliflozin 10 Mg Tab) 10 mg PO DAILY [facility] Stop: 04/28/25 08:59 Last Admin: 03/29/25 08:36 Dose: 10 mg Ferrous Sulfate (Ferrous Sulfate 325 Mg Tab) 325 mg PO BID [facility] Stop: 04/27/25 08:59 Last Admin: 03/29/25 08:37 Dose: 325 mg Furosemide (Furosemide 40 Mg/4 Ml Vial) 60 mg IV [id number] [facility] Stop: 04/27/25 07:09 Last Admin: 03/29/25 08:34 Dose: 60 mg Gabapentin (Gabapentin 100 Mg Cap) 100 mg PO TID [facility] Stop: 04/27/25 08:59 Last Admin: 03/29/25 08:37 Dose: 100 mg Heparin Sodium (Porcine) (Heparin Sod 5,000 Unit/0.5 Ml Vial) 7,500 units SQ Q12 [facility] Stop: 04/27/25 08:59 Last Admin: 03/29/25 08:42 Dose: 7,500 units Isosorbide Mononitrate (Isosorbide [place] Extended Rel 60 Mg Tabcr) 60 mg PO QAM [facility] Stop: 04/27/25 08:59 Last Admin: 03/29/25 08:37 Dose: 60 mg Levothyroxine Sodium (Levothyroxine Sodium 75 Mcg Tablet) 75 mcg PO DAILYBB [facility] Stop: 04/27/25 06:29 Last Admin: 03/29/25 05:51 Dose: 75 mcg Metoprolol Succinate (Metoprolol Succ 50mg Ext Rel Tab) 100 mg PO QAM [facility] Stop: 04/27/25 08:59 Last Admin: 03/29/25 08:37 Dose: 100 mg Nitroglycerin (Nitroglycerin Sl 0.4 Mg/Tab Tab) 0.4 mg SL Q5M PRN PRN Reason: Chest Pain Stop: 04/27/25 05:55 Pantoprazole Sodium (Pantoprazole 40 Mg Tab) 40 mg PO DAILY [facility] Stop: 04/27/25 08:59 Last Admin: 03/29/25 08:36 Dose: 40 mg Polyethylene Glycol (Polyethylene (Miralax) 17 Gm Pack) 17 gm PO DAILY PRN PRN Reason: Constipation Stop: 04/27/25 05:55 Rosuvastatin Calcium (Rosuvastatin Calcium 10 Mg Tab) 10 mg PO HS [facility] Stop: 04/27/25 20:59 Last Admin: 03/28/25 20:20 Dose: 10 mg Tramadol HCl (Tramadol Hcl 50 Mg Tablet) 50 mg PO Q6H PRN PRN Reason: Pain, Moderate Stop: 04/27/25 05:55 PG Care Time/CCT Total # of Minutes Spent Total Time Spent with Patient: Total time spent is greater than 50% in coordination of care (as documented) at patient's floor/unit and/or counseling patient: [place] [address] SUB INP/OBS CARE 3/50MIN Patient Type Established Medical Decision Making High Complexity Diagnoses CHF (congestive heart failure) I50.9
[2025-03-30 06:29] LABS: Hematocrit (blood only) 30.2 % (37.0-47.0); Hemoglobin 9.4 g/dl (12.0-16.0); Mean Corpuscular Hemoglobin 29.6 pg (25.0-34.0); Mean Corpuscular Volume 95.0 fL (80.0-100.0); Platelet Count 143 K/uL (130-400); RDW Standard Deviation 50.2 fL (36.4-46.3); Red Blood Count 3.18 M/uL (4.20-5.40); White Blood Count 4.70 K/ul (4.8-10.8)
[2025-03-30 06:51] LABS: Anion Gap 8.0 (3-11); Blood Urea Nitrogen 37.0 mg/dl (6-23); Calcium 8.2 mg/dl (8.6-10.3); Carbon Dioxide 29.0 mmol/L (21-32); Chloride 104.0 mmol/L (98-107); Creatinine Clr Calc Pharmacy 21.4 ml/min; Glucose 93.0 mg/dl (70-99(Fasting)); Magnesium 2.1 mg/dl (1.7-2.4); Potassium 3.9 mmol/L (3.5-5.1); Sodium 141.0 mmol/L (136-145)
--- NOTE | 2025-03-30 11:45 | Ultrasound Report ---
RENAL ULTRASOUND HISTORY: ANN COMPARISON: CT of 02/08/2023 FINDINGS: Right kidney measures 8 x 4 cm. Left kidney measures 9 x 4 cm. There is no hydronephrosis b ilaterally. There is mild cortical thinning at both kidneys. No renal calculi seen. There is a 1.3 cm cyst at the left kidney. There is normal Doppler flow to both kidneys. Urinary bladder is unremarkab le. IMPRESSION: No hydronephrosis. ACT 112: Negative or not required by law. Electronically signed by: Sherman Wetzel M.D. 03/30/2025 11:43 AM
--- NOTE | 2025-03-30 14:44 | Hospitalist Progress Note ---
Date of Service March 30, 2025 Assessment & Plan (1) Acute on chronic heart failure with mildly reduced ejection fraction (HFmrEF): (2) Demand ischemia of myocardium: (3) Chronic renal failure (CRF), stage 3b: (4) Lymphedema associated with obesity: (5) Prediabetes: (6) Chronic stable angina: (7) Morbid obesity: (8) CAD (coronary artery disease): Plan Patient 80-year-old female who has acute on chronic heart failure with mild reduced ejection fraction and possibly some lower extremity cellulitis versus chronic ruborous changes from edema. Acute heart failure with mildly reduced EF Troponin elevation--demand ischemia --CXR:Cardiomegaly. Faint haziness in the right lower lung lobe, likely representing atelectatic changes. No acute pulmonary abnormalities are identified. No significant interval change. --ECHO: EF 45 to 50%.Moderate sized apical wall motion abnormality with akinesis of the segments. Aortic valve sclerosis mild, without significant stenosis. Mild tricuspid regurgitation. Trivial loculated posterior pericardial effusion. Findings do not suggest cardiac tamponade. When compared to prior echo, no significant change. --BNP 390 --Was started on IV Lasix 60 mg twice a day----discontinued due to worsening renal function Monitor I's and O's, daily weight Appreciate cardiology input Monitor and replete electrolytes as needed Was also started on Jardiance Continue fluid restriction Continue metoprolol succinate, isosorbide Monitor volume status Consider to start on torsemide 20 mg daily once renal function improves Needs rehab placement when medically stable Chronic lymphedema Suspected lower extremity cellulitis Chronic venous stasis -Venous Doppler showed no DVT -Daptomycin transitioned to Keflex Morbid obesity BMI 41 ANN on CKD stage IIIb Baseline creatinine ~1.9 --Renal USD:No hydronephrosis. Creatinine 2.5 today Avoid nephrotoxic agents as able Monitor renal function Continue to hold diuretics today Patient expresses that she is not interested in dialysis Consider nephrology evaluation if renal function continues to worsen Other chronic conditions: Coronary artery disease History of apical thrombus--no longer on anticoagulation Hypertension Hypothyroidism-continue levothyroxine- GERD Hyperlipidemia Continue home medications as able DVT Px: Heparin SQ CODE STATUS Full code Disposition Suboptimal living conditions per record Case management to help with discharge planning PT recommends acute rehab Admission and Anticipated Discharge Date Admission Date: March 28, 2025 Subjective Patient is seen and examined at bedside Sitting in chair during my encounter States feeling well today Leg edema improved Creatinine levels rising Denies any chest pain, dyspnea, nausea, vomiting, abdominal pain No complaints today Review of Systems Review of Systems: All systems reviewed & are unremarkable except as noted in Subjective Physical Exam Physical Exam: Physical Exam: Vitals signs as noted above General Appearance:Obese, no apparent distress, chronic ill-appearing, elderly Head: normocephalic, Atraumatic Eyes: normal inspection, EOMI Neck: supple, Trachea midline Respiratory/Chest: Decreased breath sounds, CTA, No accessory muscle use Cardiovascular: S1, S2, No murmur Abdomen/GI:Soft, Non tender, Bowel sounds present Extremities/Musculoskeletal:normal inspection, B/L LE edema, Erythema wrapped Neurologic/Psych:AAOX3, grossly no focal neurological deficits Skin: normal color, warm Results & Data Results & Data Vital Signs (Past 12 Hours) Vital Signs Temp Pulse Resp BP Pulse Ox O2 Del Method 03/30/25 11:04 36.6 C 63 17 106/64 98 Room Air 03/30/25 08:11 37.5 C 65 20 113/69 95 Room Air 03/30/25 07:50 Room Air 03/30/25 03:57 36.7 C 68 18 120/67 97 Room Air Laboratory Results Short CBC 03/30/25 Range/Units 05:40 WBC 4.70 L (4.8-10.8) K/ul Hgb 9.4 L (12.0-16.0) g/dl Hct 30.2 L (37.0-47.0) % Plt Count 143 (130-400) K/uL BMP 03/30/25 05:40 Sodium 141 Potassium 3.9 Chloride 104 Carbon Dioxide 29 BUN 37 H Creatinine 2.50 H Glucose 93 Calcium 8.2 L
[2025-03-31 05:24] LABS: Hematocrit (blood only) 29.5 % (37.0-47.0); Hemoglobin 9.2 g/dl (12.0-16.0); Mean Corpuscular Hemoglobin 29.7 pg (25.0-34.0); Mean Corpuscular Volume 95.2 fL (80.0-100.0); Platelet Count 155 K/uL (130-400); RDW Standard Deviation 50.4 fL (36.4-46.3); Red Blood Count 3.10 M/uL (4.20-5.40); White Blood Count 4.28 K/ul (4.8-10.8)
[2025-03-31 05:39] LABS: Anion Gap 5.0 (3-11); Blood Urea Nitrogen 41.0 mg/dl (6-23); Calcium 8.4 mg/dl (8.6-10.3); Carbon Dioxide 30.0 mmol/L (21-32); Chloride 106.0 mmol/L (98-107); Creatinine Clr Calc Pharmacy 20.2 ml/min; Glucose 95.0 mg/dl (70-99(Fasting)); Potassium 4.1 mmol/L (3.5-5.1); Sodium 141.0 mmol/L (136-145)
--- NOTE | 2025-03-31 10:17 | Nephrology Consultation ---
Date of Consultation March 31, 2025 Assessment & Plan (1) ANN (acute kidney injury): ANN - hemodynamic type in the setting of cardiac issues. but I think adding jardaince with lasix together could have been a bit to much for her system. Some elderly patients do react quite negatively with jardiance lasix has been on hold since 03/29 AM. SO will also stop Jardiance. No obstruction . not vol depletion. UA seems fairly bland. repeat UA and urine PCR. Stop Jardiance for now. daily renal panel. I and O charting. (2) Chronic kidney disease (CKD), stage 4: Underlying CKD stage 4 from multiple causes. (3) Acute on chronic heart failure with mildly reduced ejection fraction (HFmrEF): EF is slightly low but she appears to have more lymphedema than a true CHF flare up. Plan Time spent 62 mins History of Present Illness Reason for Consultation: ANN on CKD 4 with CHF Attending Physician: Trupti Inman MD History of Present Illness 80/F admitted 03/28/2025 for Increasing LE edema and redness. managed as CHF and got iv lasix 60 bid but after AM dose of 03/29 has been on hold. so got 2 doses only. has baseline CKD 4 with creat around 1.6--1.9. On Admission was around baseline and since then been rising slowly and is 2.6 today. Other issues are : dyslipidemia, hypothyroidism, hiatal hernia, hypertension, history of CAD, CKD stage III, lymphedema of both lower extremities, who lives alone at home and ambulates with a cane and a walker presents with bilateral lower extremity weakness. Patient states she was unable to get up from the recliner and called EMS. Last couple of days she noticed redness in her legs and also soreness in the legs. Denies any fevers. Denies any chest pain or shortness of breath. Has some back pain. Denies any headache. No cough. No nausea. No earache or runny nose or sore throat. No abdominal pain. Normal bowel and bladder movements. Hemodynamics okay. For EMS seems patient living conditions were deplorable. There were insects and snakes in the house !!! ECHO done--EF 40%, and renal US done--Normal. Currently Vital signs are normal. on RA. At home on Losartan but no diuretics. No NSAIDS claimed. seems like jardiance is new for her inpt ROS--see HPI. 12 systems reviewed and negative Physical Exam Physical Exam: General- Not in distress. awake and alert. Neck- supple, no JVD. Lungs- clear to auscultation no wheezing or crackles Heart- regular rate and rhythm; no murmur, no gallop. Abdomen- soft, nontender Extremities- b/l lower extremity edema 1+ but b/l bandaged Neuro- alert, oriented PERRL, no facial palsy; no dysarthria; moves extremities Allergies Allergy/AdvReac Type Severity Reaction Status Date / Time No Known Allergies Allergy Unknown Verified 03/28/25 00:32 Home Medications Medication Instructions Recorded Confirmed Type diclofenac sodium 1 % topical gel 2 g topical BID PRN JOINT PAIN 03/28/25 03/28/25 History ergocalciferol (vitamin D2) 1,250 1,250 mcg PO WK 03/28/25 03/28/25 History mcg (50,000 unit) capsule (Vitamin D2) ferrous sulfate 325 mg (65 mg 325 mg PO BID 03/28/25 03/28/25 History iron) tablet (FeroSul) gabapentin 100 mg capsule 100 mg PO TID 03/28/25 03/28/25 History isosorbide mononitrate 60 mg 60 mg PO QAM 03/28/25 03/28/25 History tablet,extended release 24 hr levothyroxine 75 mcg tablet 75 mcg PO DAILYBB 03/28/25 03/28/25 History losartan 50 mg tablet 50 mg PO DAILY 03/28/25 03/28/25 History metoprolol tartrate 100 mg tablet 100 mg PO DAILY 03/28/25 03/28/25 History nitroglycerin 0.4 mg sublingual 0.4 mg sublingual DIRECTED PRN 03/28/25 03/28/25 History tablet (Nitrostat) Chest Pain pantoprazole 20 mg tablet,delayed 20 mg PO DAILY 03/28/25 03/28/25 History release rosuvastatin 10 mg tablet 10 mg PO HS 03/28/25 03/28/25 History tramadol 50 mg tablet 50 mg PO Q6H PRN Pain, Moderate 03/28/25 03/28/25 History Patient History Social History Smoking Status: Never smoker Hx Alcohol Use: No Hx Substance Use: No Preferred Language: Citizen Of [place] Communication Ability: Effective Residential Aide Required: No Beliefs That Will Affect Care: None Current Living Situation: Alone Feels Safe at Home: Yes Safety Concerns: Feels Safe At This Time Assistive Devices: Cane and Walker Results & Data Vital Signs (Past 12 Hours) Vital Signs Temp Pulse Pulse Resp BP Pulse Ox O2 Del Method 03/31/25 08:00 68 03/31/25 07:58 36.7 C 66 20 113/65 96 Room Air 03/31/25 03:19 36.7 C 66 16 105/66 96 Room Air 03/30/25 23:05 37.3 C 69 18 100/63 93 Room Air 03/30/25 22:26 68 Laboratory Results CBC, renal Panel, UA, CXR, renal US and ECHO reviewed
[2025-03-31 10:36] LABS: Iron 54.0 mcg/dl (35-150); Total Iron Binding Cap Calc 230.0 mcg/dl (250-450); Transferrin 164.0 mg/dl (200-360); Transferrin (FE) Percent Satur 23.0 % (15-50)
[2025-03-31 10:55] LABS: Ferritin 184.5 ng/ml (8-388)
[2025-03-31 11:49] LABS: Folate (Folic Acid),Ser orPlas 7.6 ng/ml (>5.38)
[2025-03-31 11:50] LABS: Vitamin B12 110.0 pg/ml (180-914)
[2025-03-31 11:51] LABS: Reticulated Hemoglobin 35.2 pg (28.2-36.6); Reticulocytes # 0.050 10^6/uL (0.020-0.100)
--- NOTE | 2025-03-31 17:32 | Hospitalist Progress Note ---
Date of Service March 31, 2025 Assessment & Plan (1) Acute on chronic heart failure with mildly reduced ejection fraction (HFmrEF): (2) Demand ischemia of myocardium: (3) Chronic renal failure (CRF), stage 3b: (4) Lymphedema associated with obesity: (5) Prediabetes: (6) Chronic stable angina: (7) Morbid obesity: (8) CAD (coronary artery disease): Plan Ms. Aragon is an 80-year-old female who has acute on chronic heart failure with mild reduced ejection fraction and possibly some lower extremity cellulitis versus chronic ruborous changes from edema. Patient managed for acute on chronic heart failure. #Acute on chronic heart failure with mildly reduced EF #Troponin elevation 2/2 demand ischemia --CXR:Cardiomegaly. Faint haziness in the right lower lung lobe, likely representing atelectatic changes. No acute pulmonary abnormalities are identified. No significant interval change. --ECHO: EF 45 to 50%.Moderate sized apical wall motion abnormality with akinesis of the segments. Aortic valve sclerosis mild, without significant stenosis. Mild tricuspid regurgitation. Trivial loculated posterior pericardial effusion. Findings do not suggest cardiac tamponade. When compared to prior echo, no significant change. --BNP 390 Initially on IV lasix 60mg daily--discontinued 2/2 renal function Monitor I's and O's, daily weight Appreciate cardiology input Monitor and replete electrolytes as needed Was also started on Jardiance--discontinued iso renal function declline Continue fluid restriction Continue metoprolol succinate, isosorbide Monitor volume status Consider to start on torsemide 20 mg daily once renal function improves plan for rehab #ANN on CKD stage IIIb Baseline creatinine ~1.9 --Renal USD:No hydronephrosis. Creatinine 2.65 today Avoid nephrotoxic agents as able Continue to hold diuretics today Patient expresses that she is not interested in dialysis Nephrology suspects the addition of jardiance and lasix may have been too much Continue to trend bmp and hold further diuersis #Chronic anemia #Low b12 no signs of bleeding noted, like iso Chronic disease/CKD continue iron supplementation start IM b12 while admitted, then transition to po upon d/c #Chronic lymphedema #Suspected lower extremity cellulitis Chronic venous stasis -Venous Doppler showed no DVT -Daptomycin transitioned to Keflex #Morbid obesity BMI 41 counselled, reports issues with ability to grocery shop and cook for self--some support from step daughter, however seems limited Other chronic conditions: Coronary artery disease History of apical thrombus--no longer on anticoagulation Hypertension Hypothyroidism-continue levothyroxine- GERD Hyperlipidemia Continue home medications as able DVT Px: Heparin SQ CODE STATUS Full code Disposition referral to [facility] Admission and Anticipated Discharge Date Admission Date: March 28, 2025 Subjective evaluated in bed today denies any acute concerns, reports apprehension with possible SNF but will consider as she is aware she doesn't have alot of home support Physical Exam Constitutional: WD/WN, vitals as above Respiratory: normal respiratory effort, lungs clear to auscultation Cardiovascular: rrr Musculoskeletal: bilateral legs in ABIMAEL bandages Neurologic: PERRL, EOMI, accommodation nl, no face palsy, no dysarthria Results & Data Results & Data Vital Signs (Past 12 Hours) Vital Signs Temp Pulse Pulse Resp BP Pulse Ox O2 Del Method 03/31/25 16:23 36.8 C 62 18 112/69 97 Room Air 03/31/25 11:55 36.7 C 61 18 111/66 97 Room Air 03/31/25 08:00 68 03/31/25 07:58 36.7 C 66 20 113/65 96 Room Air Laboratory Results Short CBC 03/31/25 Range/Units 04:35 WBC 4.28 L (4.8-10.8) K/ul Hgb 9.2 L (12.0-16.0) g/dl Hct 29.5 L (37.0-47.0) % Plt Count 155 (130-400) K/uL BMP 03/31/25 04:35 Sodium 141 Potassium 4.1 Chloride 106 Carbon Dioxide 30 BUN 41 H Creatinine 2.65 H Glucose 95 Calcium 8.4 L Medications Administered Home Medications Medication Instructions Recorded Confirmed Last Taken diclofenac sodium 1 % topical gel 2 g topical BID PRN JOINT PAIN 03/28/2503/28 Unknown ergocalciferol (vitamin D2) 1,250 1,250 mcg PO WK 03/28/25 03/28/25 Unknown mcg (50,000 unit) capsule (Vitamin D2) ferrous sulfate 325 mg (65 mg 325 mg PO BID 03/28/25 03/28/25 03/27/25 iron) tablet (FeroSul) gabapentin 100 mg capsule 100 mg PO TID 03/28/25 03/28/25 03/27/25 isosorbide mononitrate 60 mg 60 mg PO QAM 03/28/25 03/28/25 03/27/25 tablet,extended release 24 hr levothyroxine 75 mcg tablet 75 mcg PO DAILYBB 03/28/25 03/28/25 03/27/25 losartan 50 mg tablet 50 mg PO DAILY 03/28/25 03/28/25 03/27/25 metoprolol tartrate 100 mg tablet 100 mg PO DAILY 03/28/25 03/28/25 03/27/25 nitroglycerin 0.4 mg sublingual 0.4 mg sublingual DIRECTED PRN 03/28/25 03/28/25 Unknown tablet (Nitrostat) Chest Pain pantoprazole 20 mg tablet,delayed 20 mg PO DAILY 03/28/25 03/28/25 03/27/25 release rosuvastatin 10 mg tablet 10 mg PO HS 03/28/25 03/28/25 03/27/25 tramadol 50 mg tablet 50 mg PO Q6H PRN Pain, Moderate 03/28/25 03/28/25 Unknown Active Medications Generic Name Dose Route Start Last Admin Trade Name Frankieq PRN Reason Stop Dose Admin Aspirin 81 mg 03/28/25 15:15 03/31/25 09:00 Aspirin 81 Mg Ectab PO 04/27/25 15:14 81 mg DAILY ADDISON Administration Cephalexin HCl 500 mg 03/28/25 21:00 03/31/25 09:01 Cephalexin 500 Mg Cap PO 04/04/25 20:59 500 mg BID ADDISON Administration Protocol Empagliflozin 10 mg 03/29/25 09:00 03/31/25 09:01 Empagliflozin 10 Mg Tab PO 04/28/25 08:59 10 mg DAILY ADDISON Administration Ferrous Sulfate 325 mg 03/28/25 09:00 03/31/25 09:01 Ferrous Sulfate 325 Mg Tab PO 04/27/25 08:59 325 mg BID ADDISON Administration Gabapentin 100 mg 03/28/25 09:00 03/31/25 13:39 Gabapentin 100 Mg Cap PO 04/27/25 08:59 100 mg TID ADDISON Administration Heparin Sodium (Porcine) 7,500 units 03/28/25 09:00 03/31/25 09:00 Heparin Sod 5,000 Unit/0.5 Ml Vial SQ 04/27/25 08:59 7,500 units Q12 ADDISON Administration Isosorbide Mononitrate 60 mg 03/28/25 09:00 03/31/25 09:00 Isosorbide [place] Extended Rel 60 Mg Tabcr PO 04/27/25 08:59 60 mg QAM ADDISON Administration Levothyroxine Sodium 75 mcg 03/28/25 06:30 03/31/25 05:26 Levothyroxine Sodium 75 Mcg Tablet PO 04/27/25 06:29 75 mcg DAILYBB ADDISON Administration Metoprolol Succinate 100 mg 03/28/25 09:00 03/31/25 09:00 Metoprolol Succ 50mg Ext Rel Tab PO 04/27/25 08:59 100 mg QAM ADDISON Administration Pantoprazole Sodium 40 mg 03/28/25 09:00 03/31/25 09:01 Pantoprazole 40 Mg Tab PO 04/27/25 08:59 40 mg DAILY DADISON Administration Rosuvastatin Calcium 10 mg 03/28/25 21:00 03/30/25 20:16 Rosuvastatin Calcium 10 Mg Tab PO 04/27/25 20:59 10 mg HS ADDISON Administration
[2025-04-01 06:01] LABS: Hematocrit (blood only) 31.1 % (37.0-47.0); Hemoglobin 10.2 g/dl (12.0-16.0); Mean Corpuscular Hemoglobin 31.2 pg (25.0-34.0); Mean Corpuscular Volume 95.1 fL (80.0-100.0); Platelet Count 157 K/uL (130-400); RDW Standard Deviation 50.2 fL (36.4-46.3); Red Blood Count 3.27 M/uL (4.20-5.40); White Blood Count 4.09 K/ul (4.8-10.8)
[2025-04-01 06:26] LABS: Anion Gap 6.0 (3-11); Blood Urea Nitrogen 42.0 mg/dl (6-23); Calcium 8.4 mg/dl (8.6-10.3); Carbon Dioxide 29.0 mmol/L (21-32); Chloride 107.0 mmol/L (98-107); Creatinine Clr Calc Pharmacy 24.4 ml/min; Glucose 98.0 mg/dl (70-99(Fasting)); Magnesium 2.4 mg/dl (1.7-2.4); Potassium 4.3 mmol/L (3.5-5.1); Sodium 142.0 mmol/L (136-145)
[2025-04-01] MEDS: CYANOCOBALAMIN 1000 MCG/ML VIAL IM SCH (08:46)
[2025-04-01 10:48] LABS: Appearance Urine Clear (Clear); Bacteria Urine Automated 2+ (None Seen); Cast Urine Automated 0-2 /lpf (0-2); Epithelial Cell Urine Auto 0-2 /hpf (0-2); Glucose Urine UA Trace (Negative); WBC Urine Automated 0-5 /hpf (0-5)
--- NOTE | 2025-04-01 10:52 | Nephrology Progress Note ---
Date of Service April 01, 2025 Assessment & Plan Admission and Anticipated Discharge Date Admission Date: March 28, 2025 Subjective Assessment & Plan (1) MIGUEL (acute kidney injury): MIGUEL - hemodynamic type in the setting of cardiac issues. but I think adding Jardiance with lasix together could have been a bit to much for her system. Some elderly patients do react quite negatively with jardiance lasix has been on hold since 913 AM. SO did stop Jardiance after AM dose. No obstruction . not vol depletion. UA seems fairly bland. repeat UA and urine PCR. Stop Jardiance for now. Miguel slightly better today. may restart Lasix from tomorrow first and start Jardiance outpt if really felt needed ( she has no money--not enough to even survive ) so have to be careful ! !! daily renal panel. I and O charting. (2) Chronic kidney disease (CKD), stage 4: Underlying CKD stage 4 from multiple causes. (3) Acute on chronic heart failure with mildly reduced ejection fraction (HFmrEF): EF is slightly low but she appears to have more lymphedema than a true CHF flare up. S--no new issues. ROS--see HPI. 12 systems reviewed and negative Physical Exam Physical Exam: General- Not in distress. awake and alert. Neck- supple, no JVD. Lungs- clear to auscultation no wheezing or crackles Heart- regular rate and rhythm; no murmur, no gallop. Abdomen- soft, nontender Extremities- b/l lower extremity edema 1+ but b/l bandaged Neuro- alert, oriented PERRL, no facial palsy; no dysarthria; moves extremities Results & Data Vital Signs (Past 12 Hours) Vital Signs Temp Pulse Resp BP Pulse Ox O2 Del Method 04/01/25 08:28 Room Air 04/01/25 07:18 36.6 C 66 16 121/75 94 Room Air 04/01/25 03:42 36.8 C 63 18 109/68 96 Room Air 03/31/25 23:28 36.7 C 64 18 102/63 95 Room Air
[2025-04-01 11:21] LABS: Protein Creatinine Ratio Urine 0.4 (0-0.2); Total Protein Urine Random 35.9 mg/dl (0-11.9)
--- NOTE | 2025-04-01 13:17 | Hospitalist Progress Note ---
Date of Service April 01, 2025 Assessment & Plan (1) Acute on chronic heart failure with mildly reduced ejection fraction (HFmrEF): (2) Demand ischemia of myocardium: (3) Chronic renal failure (CRF), stage 3b: (4) Lymphedema associated with obesity: (5) Prediabetes: (6) Chronic stable angina: (7) Morbid obesity: (8) CAD (coronary artery disease): Plan Ms. Aragon is an 80-year-old female who has acute on chronic heart failure with mild reduced ejection fraction and possibly some lower extremity cellulitis versus chronic ruborous changes from edema. Patient managed for acute on chronic heart failure. Patient noted to have worsening ann iso diuresis and Jardiance. Currently pending placement with plans to resume torsemide tomorrow am #Acute on chronic heart failure with mildly reduced EF #Troponin elevation 2/2 demand ischemia --CXR:Cardiomegaly. Faint haziness in the right lower lung lobe, likely representing atelectatic changes. No acute pulmonary abnormalities are identified. No significant interval change. --ECHO: EF 45 to 50%.Moderate sized apical wall motion abnormality with akinesis of the segments. Aortic valve sclerosis mild, without significant stenosis. Mild tricuspid regurgitation. Trivial loculated posterior pericardial effusion. Findings do not suggest cardiac tamponade. When compared to prior echo, no significant change. --BNP 390 Initially on IV lasix 60mg daily--discontinued 2/2 renal function Monitor I's and O's, daily weight Appreciate cardiology input Monitor and replete electrolytes as needed Was also started on Jardiance--discontinued iso renal function decline--would not resume 2/2 financial issues as well Continue fluid restriction Continue metoprolol succinate, isosorbide Monitor volume status plan to start torsemide 20mg tomorrow am plan for rehab #ANN on CKD stage IV Baseline creatinine ~1.9, peaked at 2.65, downtrending now --Renal USD:No hydronephrosis. Creatinine 2.65 today Avoid nephrotoxic agents as able Continue to hold diuretics today Patient expresses that she is not interested in dialysis Nephrology suspects the addition of jardiance and lasix may have been too much Continue to trend bmp and plan to start torsemide in am hold jardiance for now #Chronic anemia #Low b12 no signs of bleeding noted, like iso Chronic disease/CKD continue iron supplementation start IM b12 while admitted, then transition to po upon d/c #Chronic lymphedema #Suspected lower extremity cellulitis Chronic venous stasis -Venous Doppler showed no DVT -Daptomycin transitioned to Keflex EOT 04/04 #Morbid obesity BMI 41 counselled, reports issues with ability to grocery shop and cook for self--some support from step daughter, however seems limited and not consistent Other chronic conditions: Coronary artery disease History of apical thrombus--no longer on anticoagulation Hypertension Hypothyroidism-continue levothyroxine- GERD Hyperlipidemia Continue home medications as able DVT Px: Heparin SQ CODE STATUS Full code Disposition referral to [facility] placed Admission and Anticipated Discharge Date Admission Date: March 28, 2025 Subjective Reports feeling ok today, notes some hesitation about rehab but understands why she needs to go denies any chest pain, sob or other acute concerns Physical Exam Constitutional: WD/WN, vitals as above Respiratory: normal respiratory effort, lungs clear to auscultation Cardiovascular: RRR, no murmur, no edema Neurologic: PERRL, EOMI, accommodation nl, no face palsy, no dysarthria Results & Data Results & Data Vital Signs (Past 12 Hours) Vital Signs Temp Pulse Resp BP Pulse Ox O2 Del Method 04/01/25 11:52 36.5 C 62 16 95 Room Air 04/01/25 08:28 Room Air 04/01/25 07:18 36.6 C 66 16 121/75 94 Room Air 04/01/25 03:42 36.8 C 63 18 109/68 96 Room Air Laboratory Results Short CBC 04/01/25 Range/Units 05:23 WBC 4.09 L (4.8-10.8) K/ul Hgb 10.2 L (12.0-16.0) g/dl Hct 31.1 L (37.0-47.0) % Plt Count 157 (130-400) K/uL BMP 04/01/25 05:23 Sodium 142 Potassium 4.3 Chloride 107 Carbon Dioxide 29 BUN 42 H Creatinine 2.11 H D Glucose 98 Calcium 8.4 L Urine 04/01/25 Range/Units 10:25 Urine Color Yellow Urine Appearance Clear (Clear) Urine pH 6.0 (4.5-7.5) Ur Specific [place] 1.019 (1.000-1.030) Urine Protein Trace H (Negative) Urine Glucose (UA) Trace H (Negative) Medications Administered Home Medications Medication Instructions Recorded Confirmed Last Taken diclofenac sodium 1 % topical gel 2 g topical BID PRN JOINT PAIN 03/28/25 03/28/25 Unknown ergocalciferol (vitamin D2) 1,250 1,250 mcg PO WK 03/28/25 03/28/25 Unknown mcg (50,000 unit) capsule (Vitamin D2) ferrous sulfate 325 mg (65 mg 325 mg PO BID 03/28/25 03/28/25 03/27/25 iron) tablet (FeroSul) gabapentin 100 mg capsule 100 mg PO TID 03/28/25 03/28/25 03/27/25 isosorbide mononitrate 60 mg 60 mg PO QAM 03/28/25 03/28/25 03/27/25 tablet,extended release 24 hr levothyroxine 75 mcg tablet 75 mcg PO DAILYBB 03/28/25 03/28/25 03/27/25 losartan 50 mg tablet 50 mg PO DAILY 03/28/25 03/28/25 03/27/25 metoprolol tartrate 100 mg tablet 100 mg PO DAILY 03/28/25 03/28/25 03/27/25 nitroglycerin 0.4 mg sublingual 0.4 mg sublingual DIRECTED PRN 03/28/25 03/28/25 Unknown tablet (Nitrostat) Chest Pain pantoprazole 20 mg tablet,delayed 20 mg PO DAILY 03/28/25 03/28/25 03/27/25 release rosuvastatin 10 mg tablet 10 mg PO HS 03/28/25 03/28/25 03/27/25 tramadol 50 mg tablet 50 mg PO Q6H PRN Pain, Moderate 03/28/25 03/28/25 Unknown Active Medications Generic Name Dose Route Start Last Admin Trade Name Freq PRN Reason Stop Dose Admin Aspirin 81 mg 03/28/25 15:15 04/01/25 08:45 Aspirin 81 Mg Ectab PO 04/27/25 15:14 81 mg DAILY ADDISON Administration Cephalexin HCl 500 mg 03/28/25 21:00 04/01/25 08:44 Cephalexin 500 Mg Cap PO 04/04/25 20:59 500 mg BID ADDISON Administration Protocol Cyanocobalamin 1,000 mcg 04/01/25 09:00 04/01/25 08:46 Cyanocobalamin 1000 Mcg/Ml Vial IM 05/01/25 08:59 1,000 mcg QAM ADDISON Administration Empagliflozin 10 mg 03/29/25 09:00 04/01/25 08:45 Empagliflozin 10 Mg Tab PO 04/28/25 08:59 10 mg DAILY ADDISON Administration Ferrous Sulfate 325 mg 03/28/25 09:00 04/01/25 08:45 Ferrous Sulfate 325 Mg Tab PO 04/27/25 08:59 325 mg BID ADDISON Administration Gabapentin 100 mg 03/28/25 09:00 04/01/25 08:44 Gabapentin 100 Mg Cap PO 04/27/25 08:59 100 mg TID ADDISON Administration Heparin Sodium (Porcine) 7,500 units 03/28/25 09:00 04/01/25 08:51 Heparin Sod 5,000 Unit/0.5 Ml Vial SQ 04/27/25 08:59 7,500 units Q12 ADDISON Administration Isosorbide Mononitrate 60 mg 03/28/25 09:00 04/01/25 08:45 Isosorbide [place] Extended Rel 60 Mg Tabcr PO 04/27/25 08:59 60 mg QAM ADDISON Administration Levothyroxine Sodium 75 mcg 03/28/25 06:30 04/01/25 04:51 Levothyroxine Sodium 75 Mcg Tablet PO 04/27/25 06:29 75 mcg DAILYBB ADDISON Administration Metoprolol Succinate 100 mg 03/28/25 09:00 04/01/25 08:45 Metoprolol Succ 50mg Ext Rel Tab PO 04/27/25 08:59 100 mg QAM ADDISON Administration Pantoprazole Sodium 40 mg 03/28/25 09:00 04/01/25 08:45 Pantoprazole 40 Mg Tab PO 04/27/25 08:59 40 mg DAILY ADDISON Administration Rosuvastatin Calcium 10 mg 03/28/25 21:00 03/31/25 20:32 Rosuvastatin Calcium 10 Mg Tab PO 04/27/25 20:59 10 mg HS ADDISON Administration
[2025-04-02 06:27] LABS: Hematocrit (blood only) 30.7 % (37.0-47.0); Hemoglobin 9.4 g/dl (12.0-16.0); Mean Corpuscular Hemoglobin 29.4 pg (25.0-34.0); Mean Corpuscular Volume 95.9 fL (80.0-100.0); Platelet Count 149 K/uL (130-400); RDW Standard Deviation 51.1 fL (36.4-46.3); Red Blood Count 3.20 M/uL (4.20-5.40); White Blood Count 3.71 K/ul (4.8-10.8)
[2025-04-02 07:12] LABS: Anion Gap 6.0 (3-11); Blood Urea Nitrogen 39.0 mg/dl (6-23); Calcium 8.4 mg/dl (8.6-10.3); Carbon Dioxide 30.0 mmol/L (21-32); Chloride 107.0 mmol/L (98-107); Creatinine Clr Calc Pharmacy 25.8 ml/min; Glucose 96.0 mg/dl (70-99(Fasting)); Magnesium 2.5 mg/dl (1.7-2.4); Potassium 4.3 mmol/L (3.5-5.1); Sodium 143.0 mmol/L (136-145)
[2025-04-02] MEDS: POTASSIUM CHLORIDE 10 MEQ TABCR PO SCH (09:15)
[2025-04-02] MEDS: TORSEMIDE 20 MG TAB PO SCH (09:16)
--- NOTE | 2025-04-02 10:00 | Nephrology Progress Note ---
Date of Service April 02, 2025 Assessment & Plan Admission and Anticipated Discharge Date Admission Date: March 28, 2025 Subjective Assessment & Plan (1) MIGUEL (acute kidney injury): MIGUEL - hemodynamic type in the setting of cardiac issues. but I think adding Jardiance with lasix together could have been a bit to much for her system. Some elderly patients do react quite negatively with jardiance lasix has been on hold since 9/13 AM. No obstruction . not vol depletion. UA seems fairly bland. repeat UA and urine PCR. Stop Jardiance for now. Miguel slightly better today. Did restart torsemide 20 from today. Start Jardiance outpt if really felt needed ( she has no money--not enough to even survive ) so have to be careful with this expensive med !!! daily renal panel. I and O charting. MIGUEL gettitng better and getting close to baseline (2) Chronic kidney disease (CKD), stage 4: Underlying CKD stage 4 from multiple causes. (3) Acute on chronic heart failure with mildly reduced ejection fraction (HFmrEF): EF is slightly low but she appears to have more lymphedema than a true CHF flare up. S--no new issues. ROS--see HPI. 12 systems reviewed and negative Physical Exam Physical Exam: General- Not in distress. awake and alert. Neck- supple, no JVD. Lungs- clear to auscultation no wheezing or crackles Heart- regular rate and rhythm; no murmur, no gallop. Abdomen- soft, nontender Extremities- b/l lower extremity edema 1+ but b/l bandaged Neuro- alert, oriented PERRL, no facial palsy; no dysarthria; moves extremities Results & Data Vital Signs (Past 12 Hours) Vital Signs Temp Pulse Pulse Resp BP BP Pulse Ox 04/02/25 07:10 36.6 C 63 18 119/72 95 04/02/25 03:15 36.6 C 62 16 125/77 99 04/01/25 23:04 36.5 C 65 16 110/64 96 04/01/25 22:00 65 O2 Del Method 04/02/25 07:10 Room Air 04/02/25 03:15 Room Air 04/01/25 23:04 Room Air 04/01/25 22:00
--- NOTE | 2025-04-02 10:40 | Discharge Summary ---
Discharge Summary Date of Service April 02, 2025 Principal Dx & Hospital Course #1 = Principal Diagnosis (1) Acute on chronic heart failure with mildly reduced ejection fraction (HFmrEF): (2) Demand ischemia of myocardium: (3) Chronic renal failure (CRF), stage 3b: (4) Lymphedema associated with obesity: (5) Prediabetes: (6) Chronic stable angina: (7) Morbid obesity: (8) CAD (coronary artery disease): Plan Ms. Aragon is an 80-year-old female who has acute on chronic heart failure with mild reduced ejection fraction and possibly some lower extremity cellulitis versus chronic ruborous changes from edema. Patient managed for acute on chronic heart failure. Patient noted to have worsening ann iso diuresis and Jardiance. Nephrology was consulted. Her diuretics were held and her Cr began to improve. Nephrology started torsemide today. She is also on keflex for suspected LE cellulitis. she will complete keflex on 04/04. She has no complaints today and is eager for discharge. Vitals and labs are stable on day of discharge. For Dc to SNF today. #Acute on chronic heart failure with mildly reduced EF #Troponin elevation 2/2 demand ischemia --CXR:Cardiomegaly. Faint haziness in the right lower lung lobe, likely representing atelectatic changes. No acute pulmonary abnormalities are identified. No significant interval change. --ECHO: EF 45 to 50%.Moderate sized apical wall motion abnormality with akinesis of the segments. Aortic valve sclerosis mild, without significant stenosis. Mild tricuspid regurgitation. Trivial loculated posterior pericardial effusion. Findings do not suggest cardiac tamponade. When compared to prior echo, no significant change. --BNP 390 Initially on IV lasix 60mg daily--discontinued 2/2 renal function Monitor I's and O's, daily weight Appreciate cardiology input Monitor and replete electrolytes as needed Was also started on Jardiance--discontinued iso renal function decline--would not resume 2/2 financial issues as well Continue fluid restriction Continue metoprolol succinate, isosorbide Monitor volume status plan to start torsemide 20mg tomorrow am plan for rehab #ANN on CKD stage IV Baseline creatinine ~1.9, peaked at 2.65, downtrending now --Renal USD:No hydronephrosis. Creatinine 2.65 today Avoid nephrotoxic agents as able Continue to hold diuretics today Patient expresses that she is not interested in dialysis Nephrology suspects the addition of jardiance and lasix may have been too much Continue to trend bmp and plan to start torsemide in am hold jardiance for now #Chronic anemia #Low b12 no signs of bleeding noted, like iso Chronic disease/CKD continue iron supplementation #Chronic lymphedema #Suspected lower extremity cellulitis Chronic venous stasis -Venous Doppler showed no DVT -Daptomycin transitioned to Keflex EOT 04/04 #Morbid obesity BMI 41 counselled, reports issues with ability to grocery shop and cook for self--some support from step daughter, however seems limited and not consistent Other chronic conditions: Coronary artery disease History of apical thrombus--no longer on anticoagulation Hypertension Hypothyroidism-continue levothyroxine- GERD Hyperlipidemia Continue home medications as able DVT Px: Heparin SQ CODE STATUS Full code Disposition referral to [facility] placed Notes For Next Care Provider Medication Changes From Visit keflex added lopressor changed to toprol Torsemide and KCl added B vitamin added Admission HPI Per Admitting Provider 80-year-old female with past medical history significant for dyslipidemia, hypothyroidism, hiatal hernia, hypertension, history of CAD, CKD stage III, lymphedema of both lower extremities, who lives alone at home and ambulates with a cane and a walker presents with bilateral lower extremity weakness. Patient states she was unable to get up from the recliner and called EMS. Last couple of days she noticed redness in her legs and also soreness in the legs. Denies any fevers. Denies any chest pain or shortness of breath. Has some back pain. Denies any headache. No cough. No nausea. No earache or runny nose or sore throat. No abdominal pain. Normal bowel and bladder movements. Hemodynamics okay. For EMS seems patient living conditions were deplorable. There were insects and snakes in the house. When asked about it patient states there are black snakes in the house and they are non venomous. Denies snake bites. She states her neighbor checks on her. States her stepdaughter gets groceries for her. Currently resting comfortably and hemodynamically stable. Past medical history. As mentioned above. Past surgical history. EGD. Right total hip replacement. Social history. No smoking. No drug use. No alcohol use. Family history. Mother had lung cancer. Father had [place]. Hypertension. Sister has diabetes. Discharge Exam Vitals and labs reviewed General: elderly. morbidly obese. NAD HEENT: EOMI, PERRLA Neck: Supple Cardiac: RRR no rubs gallops or murmurs Lungs: CTA no rhonchi wheezing or rales Abd: S NT ND BS positive MSK: Full ROM. No obvious deformities Ext: b/l LE non pitting edema. legs wrapped. Skin: Warm, Dry Neuro: AOx3 No focal deficits. Psych: Normal Mood Updated Medication List Medication Instructions Recorded Confirmed Type diclofenac sodium 1 % topical gel 2 g topical BID PRN JOINT PAIN 03/28/25 03/28/25 History ergocalciferol (vitamin D2) 1,250 1,250 mcg PO WK 03/28/25 03/28/25 History mcg (50,000 unit) capsule (Vitamin D2) ferrous sulfate 325 mg (65 mg 325 mg PO BID 03/28/25 03/28/25 History iron) tablet (FeroSul) gabapentin 100 mg capsule 100 mg PO TID 03/28/25 03/28/25 History isosorbide mononitrate 60 mg 60 mg PO QAM 03/28/25 03/28/25 History tablet,extended release 24 hr levothyroxine 75 mcg tablet 75 mcg PO DAILYBB 03/28/25 03/28/25 History losartan 50 mg tablet 50 mg PO DAILY 03/28/25 03/28/25 History metoprolol tartrate 100 mg tablet 100 mg PO DAILY 03/28/25 03/28/25 History nitroglycerin 0.4 mg sublingual 0.4 mg sublingual DIRECTED PRN 03/28/25 03/28/25 History tablet (Nitrostat) Chest Pain pantoprazole 20 mg tablet,delayed 20 mg PO DAILY 03/28/25 03/28/25 History release rosuvastatin 10 mg tablet 10 mg PO HS 03/28/25 03/28/25 History aspirin 81 mg tablet,delayed 81 mg PO DAILY 30 days #30 tabs 04/02/25 Rx release cephalexin 500 mg capsule 500 mg PO BID 3 days #6 caps 04/02/25 Rx metoprolol succinate 50 mg 100 mg (2 x 50 mg) PO QAM 30 days 04/02/25 Rx tablet,extended release 24 hr #60 tabs potassium chloride 10 mEq 10 meq PO DAILY 30 days #30 tabs 09/17/25 Rx tablet,extended release torsemide 20 mg tablet 20 mg PO QAM 30 days #30 tabs 04/02/25 Rx tramadol 50 mg tablet 50 mg PO Q6H PRN Pain, Moderate 04/02/25 Rx #10 tabs tramadol 50 mg tablet 50 mg PO Q6H PRN severe pain 04/02/25 Rx (scale score 7-10) 30 days #30 tabs vitamin B complex 1 cap PO DAILY #30 caps 04/02/25 Rx Hospital Stay Data Consultations 03/28/25 02:05 ED Decision to Admit Stat 03/28/25 08:00 Consult Cardiology Routine 03/31/25 08:00 Consult Nephrology Routine Diagnostic Imagining Performed 03/28/25 05:56 US venous doppler LE BI Routine 03/30/25 09:00 US Renal Bladder [US renal/blad retro comp] Routine Pending Results Patient Have Any Pending Studies at Discharge: No Discharge Instructions Given to Patient (Per Discharging Provider) Continue to work on rehab. take your antibiotic, keflex through 04/04. Follow up with your kidney and heart doctors as outpatient. Total Time Total Time Spent Total Time Spent (In Minutes): 42
[2025-04-02 11:22] VITALS: BP 95/59; RESP 17; TEMP 98.1; O2SAT 96
[2025-04-02 11:57] VITALS: PULSE 66
== END 2025-04-02 14:02 | DRG 291 ==
LOC: ED 23:19 → SUATTDRO 03-28 02:49 → 4W 03-28 02:49